=== PATIENT | female | born 1930 | race African-American/Black ===

== ENCOUNTER 2018-05-01 17:36 | Inpatient (IN) | payer OTHER, MEDICARE ==
[~2018-05-01] VITALS: Ht 167.6 cm; Wt 71.5 kg
[~2018-05-01 17:36] MED LIST: ASPIRIN325 M2 PO; ATORVASTATIN CA10 M1 PO; HEPARIN-1/25000 UNI1 IV; HEPARIN-D525000 UNIT IV; METOPROLOL TART25 M1 PO; NITROGLYCERIN1 EACH TOP; PLAVIX75 M1 PO; TYLENOL #31 TAB PO
--- NOTE | 2018-05-01 17:44 | ED GI/GU/ABDOMINAL COMPLAINT ---
History of Present Illness General Chief Complaint: Nausea, Vomiting, Diarrhea Stated Complaint: NAUSEA, BLACK STOOL Source: patient Exam Limitations: poor historian Allergies Coded Allergies: No Known Allergies (10/30/17) Reconcile Medications Aspirin (Aspirin*) 325 MG TABLET 1 TAB PO DAILY heart health Atorvastatin Calcium 10 MG TABLET 1 TAB PO DAILY hyperlipidemia Clopidogrel Bisulfate (Plavix) 75 MG TABLET 1 TAB PO DAILY blood thinner Heparin (Heparin-1/2NS 25,000 Units/500) 25,000 UNIT/500 ML (50 UNIT/ML) IV.SOLN 18.6 ML IV CONTINOUS INFUSION heart health Heparin Sodium,Porcine/D5w (Heparin-D5w 25,000 Unit/250 Ml) 25,000 UNIT/250 ML ( 100 UNIT/ML) IV.SOLN 500 ML IV Q24 heart health Metoprolol Tartrate 25 MG TABLET 1 TAB PO BID heart [facility] Nitroglycerin (Nitroglycerin Patch) 0.4 MG/HOUR PATCH.TD24 1 PAT TOP DAILY chest pain Triage Nurses Notes Reviewed? yes ? N Is pt currently ? No Onset: Gradual Duration: getting worse Quality/Severity: sharpness, severe Severity Numbers: 7 Radiation: no radiation HPI: Patient is an 88-year-old female who is a poor historian which history is limited however old records indicate that patient has a past medical history of an STEMI, heart failure, hyperlipidemia, hypertension, who is currently on anticoagulation who presents emergency room with bilateral upper leg pain generalized weakness and fatigue and noted 3 day history of black stools Denies any fever chills chest pain arm pain jaw pain cough dysuria hematuria states that on Tuesday the caregiver did note bright red blood from stool Patient's son does present to the emergency room and which he states that she also has been vomiting in the past 24 hours Unknown if there is Pepto-Bismol and iron supplementation however son does not think so Medical reconciliation shows the patient is on Plavix and ELIQUIS ([facility],Gary) Vital Signs & Intake/Output Vital Signs & Intake/Output Vital Signs Date Time Temp Pulse Resp B/P B/P Pulse O2 O2 Flow FiO2 Mean Ox Delivery Rate 05/01 2050 99.0 102 16 121/58 99 Room Air 05/01 1754 98.0 88 20 162/63 94 Room Air Room Air ([place] CERNA,Carlos A Pool) Past History Travel History Traveled to [place] past 21 day No Medical History Any Pertinent Medical History? see below for history Neurological: NONE EENT: NONE Cardiovascular: CHF, hypertension, myocardial infarction Respiratory: NONE Gastrointestinal: NONE Hepatic: NONE Renal: NONE Musculoskeletal: NONE Psychiatric: NONE Endocrine: NONE History of MRSA: No History of VRE: No History of CDIFF: No Surgical History Surgical History: Previous Abdominal Surgery, unsure which Psychosocial History Who do you live with Son Services at Home None What is your primary language Occitan Family History Hx Contributory? No (Gary Hernández) Review of Systems Review of Systems Constitutional: Reports: see HPI, malaise, weakness. EENTM: Reports: no symptoms. Respiratory: Reports: no symptoms. Cardiovascular: Reports: no symptoms. GI: Reports: see HPI, changes in stool. Genitourinary: Reports: no symptoms. Musculoskeletal: Reports: see HPI, muscle pain. Skin: Reports: no symptoms. Neurological/Psychological: Reports: no symptoms. Hematologic/Endocrine: Reports: no symptoms. Immunologic/Allergic: Reports: no symptoms. All Other Systems: Reviewed and Negative (Gary Hernández) Physical Exam Physical Exam General Appearance: no apparent distress, alert Head: atraumatic Eyes: Bilateral: normal appearance. Ears, Nose, Throat, Mouth: moist mucous membrane Neck: normal inspection Respiratory: normal breath sounds Cardiovascular: regular rate/rhythm Gastrointestinal: tenderness Rectal: heme positive stool, DARK BROWN STOOL NO BLOOD Neurologic/Psych: no motor/sensory deficits, awake Diagram Body Front & Back 1) Normal inspection generalized point tenderness noted 2) Normal inspection generalized point tenderness noted Core Measures ACS in differential dx? No Sepsis Present: No Sepsis Focused Exam Completed? No (Gary Hernández) Progress Differential Diagnosis: AAA, AMI, appendicitis, biliary colic, bowel obstruction , colon cancer, cholecystitis, diverticulitis, endometritis, esophageal varices, gastritis, hepatitis, hernia, hemorrhoids, ischemic bowel, inflamm bowel dis, kidney stone, Milena-Amirah tear, ovarian cyst, ovarian torsion, pancreatitis, PID/cervicitis, peptic ulcer, PUD/GERD, perforated viscous, SBO, UTI/pyelo Diagnostic Imaging: Viewed by Me: CT Scan. Radiology Impression: SEE COMMENTS Initial ED EK BPM,NSR Comments: PATIENT: SALONI ARDON PRESENT AGE: 88 PATIENT ACCOUNT NO: [id number] : [birth year] LOCATION: [facility] ORDERING PHYSICIAN: Gary [facility] SERVICE DATE: 05/01/18 EXAM TYPE: CAT - CT ABD & PELVIS W/O IV CONTRAS EXAMINATION: CT ABDOMEN AND PELVIS WITHOUT CONTRAST CLINICAL INFORMATION: Black stool. Pelvic pain. COMPARISON: None TECHNIQUE: Multidetector volumetric imaging was performed from the superior aspect of the liver through the pubic symphysis. Sagittal and coronal reformatted images were obtained on the technologist's workstation. DLP: 271 mGy-cm FINDINGS: LUNG BASES: The visualized lung bases are unremarkable. There is a peripherally calcified structure at the posterior inferior margin of the left ventricle and inferolateral margin of the left atrium measuring 4.9 x 3.7 x 4.4 cm, partially imaged on this study. This is of uncertain etiology, potentially a chronic partially calcified hematoma, a partially calcified aneurysm, or sequela of prior infection. LIVER, GALLBLADDER, AND BILIARY TREE: The liver is normal in size, shape, and attenuation. No focal hepatic lesion or biliary ductal dilatation is present. The gallbladder is filled with peripherally calcified gallstones which measure up to 2.4 cm in diameter. No gallbladder wall thickening or surrounding inflammatory changes are identified to indicate cholecystitis. PANCREAS: Unremarkable. SPLEEN: Unremarkable. ADRENAL GLANDS: Unremarkable. KIDNEYS AND URETERS: The kidneys are normal in size, shape, and attenuation. No hydronephrosis, hydroureter, or calculi seen. No perinephric stranding. BLADDER: Unremarkable. GASTROINTESTINAL TRACT: Stomach, small bowel, and colon are normal in caliber. No bowel wall thickening or surrounding inflammatory changes. Appendix is normal. There is mild to moderate colonic diverticulosis, most notably in the sigmoid and descending colon. A few diverticula are present in the ascending colon. No intraperitoneal free air or free fluid. ABDOMINAL WALL: No significant hernia is uterus and ovaries are unremarkable. Appreciated. LYMPH NODES: Normal. VASCULAR: Calcific atherosclerosis is present in the abdominal aorta and iliac arteries. No aneurysmal dilatation. 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 There is marked facet arthropathy. There is ankylosis of the SI joints. 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 IMPRESSION: 1. No acute intra-abdominal or intrapelvic abnormalities. There is mild to moderate colonic diverticulosis without evidence of acute diverticulitis. 2. Marked cholelithiasis without findings of acute cholecystitis. 3. A peripherally calcified 4.9 cm cardiac structure at the posterior/inferior margin of the left atrioventricular groove, possibly a chronic peripherally calcified collection/hematoma, a partially calcified aneurysm, or sequela of prior infection. Recommend correlation with the results of a prior echocardiogram from 10/31/2017. 4. 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 Diffuse ankylosis of the thoracal lumbar spine is either due to ankylosing spondylitis or diffuse idiopathic skeletal hyperostosis. DICTATED BY: Ever Koroma MD DATE/TIME DICTATED:05/01/181938 LEGAL COORDINATOR:ASTRID DATE/TIME TRANSCRIBED:05/01/181938 (Gary Hernández) Plan of Care: Orders Procedure Date/time Status Nothing by Mouth 05/02 B Active Misc Message 05/01 2105 Active ED Holding Orders 05/01 2105 Active Admit to inpatient 05/01 2105 Active Patient Data 05/01 2105 Active Vital Signs 05/01 2105 Active Code Status 05/01 2105 Active BLOOD PRODUCT PICKUP 05/01 2058 Active MISTAKE 05/01 2040 Active LEUKOCYTE POOR (PACKED CELLS) 05/01 2032 Active URINALYSIS 05/01 1839 Active TROPONIN LEVEL 05/01 1839 Complete PARTIAL THROMBOPLASTIN TIME 05/01 1839 Complete PROTHROMBIN TIME 05/01 1839 Complete COMPREHENSIVE METABOLIC PANEL 05/01 1839 Complete CBC WITHOUT DIFFERENTIAL 05/01 1839 Active EKG 05/01 1839 Active TYPE & SCREEN (NOT X-MATCH) 05/01 1839 Active Current Medications Sig/Alfredo Start time Last Medication Dose Stop Time Status Admin Sodium Chloride 1,000 ML BOLUS ONE 05/01 2000 CAN (Normal Saline 0.9%) 05/01 2059 Laboratory Tests 05/01/181952: Anion Gap 9, Estimated GFR 42 L, BUN/Creatinine Ratio 35.0 H, Glucose 111 H, Calcium 8.9, Total Bilirubin 0.2, AST 17, ALT 18, Alkaline Phosphatase 62, Troponin I 0.01, Total Protein 5.9 L, Albumin 3.3 L, Globulin 2.6, Albumin/ Globulin Ratio 1.3, PT 17.3 H, INR 1.58 H, APTT 28, CBC w Diff MAN DIFF ORDERED, RBC 1.80 L, MCV 89.3, MCH 30.4, MCHC 34.0, RDW 18.3 H, MPV 8.8, Gran % 82.0 H, Lymphocytes % 9.4 L, Monocytes % 8.4, Eosinophils % 0.2, Basophils % 0, Absolute Granulocytes 13.4 H, Segmented Neutrophils Pending, Absolute Lymphocytes 1.5, Absolute Monocytes 1.4 H, Absolute Eosinophils 0, Absolute Basophils 0 ([place] CERNA,Carlos A Pool) Departure Departure Disposition: STILL A PATIENT Condition: Stable Clinical Impression Primary Impression: GI bleed Secondary Impressions: Anemia, Diverticulosis Referrals: Harsh Branch MD (PCP/Family) Departure Forms: Customer Survey General Discharge Information Admission Note Spoke With: Beckie Castillo MD Documentation of Exam: Documentation of any treatments & extenuating circumstances including Concerns Regarding Discharge (functional status, medication knowledge or non-compliance, living conditions, etc.) that warrant an admission rather than observation: [ Patient requires IV blood transfusion possible endoscopy colonoscopy repeat labs gastroenterology consultation short-term rehabilitation physical therapy consultation and cardiology consultation] (Gary Hernández) PA/HOTEL ENGINEER Co-Sign Statement Statement: ED Attending supervision documentation- [X] I saw and evaluated the patient. I have also reviewed all the pertinent lab results and diagnostic results. I agree with the findings and the plan of care as documented in the PA's/HOTEL ENGINEER's documentation. Patient presents for evaluation of black bowel movements. Physical examination reveals an alert and conversant patient with good color and a nontender abdomen. [] I have reviewed the ED Record and agree with the PA's/HOTEL ENGINEER's documentation. [] Additions or exceptions (if any) to the PAs/HOTEL ENGINEER's note and plan are summarized below: [] ([place]ina CERNA,Carlos A Pool)
--- NOTE | 2018-05-01 19:55 | CT SCAN REPORT ---
EXAMINATION: CT ABDOMEN AND PELVIS WITHOUT CONTRAST CLINICAL INFORMATION: Black stool. Pelvic pain. COMPARISON: None TECHNIQUE: Multidetector volumetric imaging was performed from the superior aspect of the liver through the pubic symphysis. Sagittal and coronal reformatted images were obtained on the technologist's workstation. DLP: 271 mGy-cm FINDINGS: LUNG BASES: The visualized lung bases are unremarkable. There is a peripherally calcified structure at the posterior inferior margin of the left ventricle and inferolateral margin of the left atrium measuring 4.9 x 3.7 x 4.4 cm, partially imaged on this study. This is of uncertain etiology, potentially a chronic partially calcified hematoma, a partially calcified aneurysm, or sequela of prior infection. LIVER, GALLBLADDER, AND BILIARY TREE: The liver is normal in size, shape, and attenuation. No focal hepatic lesion or biliary ductal dilatation is present. The gallbladder is filled with peripherally calcified gallstones which measure up to 2.4 cm in diameter. No gallbladder wall thickening or surrounding inflammatory changes are identified to indicate cholecystitis. PANCREAS: Unremarkable. SPLEEN: Unremarkable. ADRENAL GLANDS: Unremarkable. KIDNEYS AND URETERS: The kidneys are normal in size, shape, and attenuation. No hydronephrosis, hydroureter, or calculi seen. No perinephric stranding. BLADDER: Unremarkable. GASTROINTESTINAL TRACT: Stomach, small bowel, and colon are normal in caliber. No bowel wall thickening or surrounding inflammatory changes. Appendix is normal. There is mild to moderate colonic diverticulosis, most notably in the sigmoid and descending colon. A few diverticula are present in the ascending colon. No intraperitoneal free air or free fluid. ABDOMINAL WALL: No significant hernia is uterus and ovaries are unremarkable. Appreciated. LYMPH NODES: Normal. VASCULAR: Calcific atherosclerosis is present in the abdominal aorta and iliac arteries. No aneurysmal dilatation. 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 There is marked facet arthropathy. There is ankylosis of the SI joints. 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 IMPRESSION: 1. No acute intra-abdominal or intrapelvic abnormalities. There is mild to moderate colonic diverticulosis without evidence of acute diverticulitis. 2. Marked cholelithiasis without findings of acute cholecystitis. 3. A peripherally calcified 4.9 cm cardiac structure at the posterior/inferior margin of the left atrioventricular groove, possibly a chronic peripherally calcified collection/hematoma, a partially calcified aneurysm, or sequela of prior infection. Recommend correlation with the results of a prior echocardiogram from 10/31/2017. 4. 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 Diffuse ankylosis of the thoracal lumbar spine is either due to ankylosing spondylitis or diffuse idiopathic skeletal hyperostosis.
[2018-05-01 20:11] LABS: ABSOLUTE BASOPHIL COUNT 0 /CUMM (0.0-0.2); ABSOLUTE EOSINOPHIL COUNT 0 /CUMM (0.0-0.7); ABSOLUTE GRANULOCYTE CT 13.4 /CUMM (1.4-6.5); ABSOLUTE LYMPH COUNT 1.5 /CUMM (1.2-3.4); ABSOLUTE MONOCYTE COUNT 1.4 /CUMM (0.10-0.60); BASOPHIL % 0 % (0.0-2.0); EOSINOPHIL % 0.2 % (0-5); MEAN CORPUSCULAR HGB 30.4 PG (27.0-31.0); MEAN CORPUSCULAR VOLUME 89.3 FL (81.0-99.0); MEAN PLATELET VOLUME 8.8 FL (7.4-10.4); PLATELET COUNT 288 /CUMM (130-400); RBC DISTRIBUTION WIDTH 18.3 % (11.5-14.5); WHITE BLOOD CELL COUNT 16.3 /CUMM (4.8-10.8)
[2018-05-01 20:12] LABS: PT 17.3 SEC (9.4-12.5); PTT 28 SEC (25-37)
[2018-05-01 20:17] LABS: HEMATOCRIT 16.1 % (37-47)
--- NOTE | 2018-05-01 22:08 | History & Physical ---
Craig Pennington MD 05/01/188: General Information and HPI History of Present Illness: 88-year-old woman with past medical history of CAD/and STEMI status post PCI with JOSE RAFAEL to LCx (10/2017) on aspirin/Plavix, atrial fibrillation on Eliquis/ sotalol, HFpEF (LVEF 60% with stage II diastolic dysfunction) C, hypertension, and hyperlipidemia seen for evaluation of leg pain and black stool. Patient is a poor historian, collateral information was obtained from ED staff and her son Frank over the phone. Patient reports over the past several weeks her right upper leg has been moderately painful without any trauma. Sometime after that her left leg became painful as well in the same character. They are described as cramping/throbbing and constant without radiation. She has been taking acetaminophen for pain relief without effect. Tuesday the patient ate a meal consisting canned soup causing her to vomit a short time later nonbloody bilious material. Tuesday she developed formed black tarry stool for which she and her son called her primary care provider whom referred her to the ED but the declined at that time. Patient continued to have black tarry stool for the next 2 days and developed generalized weakness with fatigue for which they then came to the [place] ED for evaluation. Review of systems She otherwise denies any headache, fever, chills, blurred/double vision, lightheadedness/dizziness, chest pain, palpitations, heartburn, shortness breath , cough, current nausea/vomiting, diarrhea, constipation, urinary symptoms. Social History Patient reports living at home with her son Frank and is otherwise apparently independent in all ADLs/IADLs including medication administration. Objective Vitals- Temp 98.0-99.0, HR 88-102, RR 16-20, SBP 121-162, O2 94-99% room air Physical Exam -General: Thin elderly woman appearing confused but in no acute distress -HEENT: NCAT, PERRL, EOMI, anicteric sclera, moist mucous membranes -Neck: Supple, no JVP, no bruits, trachea midline, no accessory respiratory muscle use -Cardio: 2/6 betancourt systolic tricuspid murmur; regular rate and rhythm -Pulmonary: Clear to auscultation bilaterally -Abdomen: Soft, non-tender, non-distended, bowel sounds intact -Neuro: Awake and alert, CN II-XII grossly intact, oriented to person/place/time -Extremities: Normal pulses, no edema Labs / Imaging / Studies -CBC: WBC 16.3, hemoglobin 5.5, hematocrit 16.1, platelet 288 -BMP: Sodium 138, potassium 4.1, chloride 102, CO2 28, BUN 42, creatinine 1.2, anion gap 9, glucose 111 -LFT: Within normal limit -Misc: Troponin I 0.01, INR 1.58 -EKG 11/02/17: Normal sinus rhythm with hyperacute T waves -EKG 05/01/18: No change from previous -Echocardiogram 10/2017: LVEF 60% with stage II diastolic dysfunction without any regional wall motion abnormalities and moderate/severe pulmonary hypertension -CT chest/abdomen/pelvis without IV contrast: 1. No acute intra-abdominal or intrapelvic abnormalities. There is mild to moderate colonic diverticulosis without evidence of acute diverticulitis. 2. Marked cholelithiasis without findings of acute cholecystitis. 3. A peripherally calcified 4.9 cm cardiac structure at the posterior/inferior margin of the left atrioventricular groove, possibly a chronic peripherally calcified collection/hematoma, a partially calcified aneurysm, or sequela of prior infection. Recommend correlation with the results of a prior echocardiogram from 10/31/2017. 4. 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 Diffuse ankylosis of the thoracal lumbar spine is either due to ankylosing spondylitis or diffuse idiopathic skeletal hyperostosis. Assessment 88-year-old woman with multiple medical problems significant for coronary artery disease/and STEMI with PCI and stent in October 2017 and atrial fibrillation on anticoagulation seen for evaluation of bilateral leg pain and black tarry stools. Presently patient is complaining of persistence of her leg pain and black tarry stools but otherwise denies any positive review of systems. Vital signs are within normal limits. Physical exam is significant only for moderate bilateral leg pain to flexion at the hip and a systolic murmur in the tricuspid area. Lab studies are significant for hemoglobin/hematocrit 5.5/16.1, WBC 16.3, BUN/ creatinine 42/1.2, and INR 1.58; troponin I is negative. CT scan was significant only for severe osteoarthritis of the bilateral hips. EKG is unchanged from previous. Patient was reportedly guaiac positive per nursing staff/AT provider. Patient was consented for blood transfusion and type and cross drawn and started on a transfusion of 3 units of packed red blood cells in the ED. She was also given intravenous Protonix and acetaminophen. Patient was orthostatic positive. Clinically patient appears to have a gastrointestinal bleed possibly secondary to dual antiplatelet therapy and anticoagulation for her multiple cardiovascular disease processes. Patient recently had a drug-eluting stent placed in October 2017 to the left circumflex artery. Patient's hemoglobin at time of discharge was 13.9 and is now 5.5. Patient received 6 months of dual antiplatelet therapy for her drug-eluting stent but now has significant bleeding for which aspirin and Eliquis are being held; Plavix is being continued and will be reassessed by cardiology. Patient is being admitted to the intensive care unit as a telemetry hold for blood transfusion, serial CBC, gastroenterology/cardiology evaluation, intravenous Protonix, and possible endoscopy. Problem List -Acute blood loss anemia likely secondary to GI bleed -Leukocytosis, likely reactive -History of coronary artery disease/STEMI status post PCI with JOSE RAFAEL to LCx, on aspirin/Plavix -Atrial fibrillation on Eliquis/sotalol, now in normal sinus rhythm -HFpEF, LVEF 60% with stage II diastolic dysfunction -Moderate/severe pulmonary hypertension -Hyperlipidemia -Hypertension Plan -Admit to intensive care unit as a telemetry hold -Guaiac all stools -Avoid aggressive hydration due to diastolic dysfunction and pulmonary hypertension -give Lasix as needed if patient develops shortness of breath -Protonix 40 mg IV twice daily -Continue home meds: Atorvastatin, Plavix, metoprolol, Lasix, sotalol -Hold aspirin and Eliquis for GI bleed -Consult with GI for gastrointestinal bleed -Consult with cardiology for medication assessment -Type and screen -Transfuse PRBC to hemoglobin >8 -Status post 3 PRBC -CBC every 6 hours -Obtain iron panel -Trend troponin/EKG until peak or 3 negative sets -Pain control with acetaminophen -N.p.o. overnight for possible endoscopy in morning -DVT prophylaxis with Alps only, avoid pharmacological prophylaxis due to acute bleed -Full code Allergies/Medications Allergies: Coded Allergies: No Known Allergies (10/30/17) Home Med list Apixaban (Eliquis) 2.5 MG TABLET 1 TAB PO BID AFIB (Reported) Aspirin (Aspirin*) 81 MG TAB.CHEW 1 TAB PO DAILY CAD (Reported) Atorvastatin Calcium 10 MG TABLET 1 TAB PO DAILY hyperlipidemia Clopidogrel Bisulfate (Plavix) 75 MG TABLET 1 TAB PO DAILY blood thinner Furosemide (Lasix) 20 MG TABLET 1 TAB PO BID SWELLING (Reported) Sotalol (Betapace) 80 MG TABLET 1 TAB PO DAILY AFIB (Reported) Past History Travel History Traveled to [place] past 21 day No Medical History Neurological: NONE EENT: NONE Cardiovascular: AFIB, CHF, hypertension, myocardial infarction Respiratory: NONE Gastrointestinal: NONE Hepatic: NONE Renal: NONE Musculoskeletal: NONE Psychiatric: NONE Endocrine: NONE History of MRSA: No History of VRE: No History of CDIFF: No Surgical History Surgical History: Previous Abdominal Surgery, unsure which Past Family/Social History Psychosocial History Where do you live? Home Who Do You Live With? child (Son Frank) Services at Home: None Primary Language: Singaporean Functional Ability ADLs Independent: dressing, eating, toileting, bathing. Ambulation: independent IADLs Independent: shopping, housework, finances, food prep, telephone, transportation , medication admin. Review of Systems Review of Systems Constitutional: Reports: see HPI. Exam & Diagnostic Data Last 24 Hrs of Vital Signs/I&O Vital Signs Date Time Temp Pulse Resp B/P B/P Pulse O2 O2 Flow FiO2 Mean Ox Delivery Rate 05/01 2243 98.7 97 16 114/56 100 Room Air 05/01 2123 99.0 05/01 2050 99.0 102 16 121/58 99 Room Air 05/01 1754 98.0 88 20 162/63 94 Room Air Room Air Assessment/Plan As Ranked By This Provider Problem List: 1. GI bleed 2. Leukocytosis Core Measures/Misc (07/24) Acute Coronary Syndrome ACS Diagnosis: No Congestive Heart Failure Congestive Heart Failure Diagnosis No Cerebrovascular Accident CVA/TIA Diagnosis: No VTE (View Protocol) VTE Risk Factors Age>40 No Mechanical VTE Prophylaxis d/t N/A MechProphylax Ordered No VTE Pharm Prophylaxis d/t Bleeding (Active) Sepsis (View protocol) Sepsis Present: No If YES complete Sepsis Event Note If YES complete Sepsis Event Note Beckie Castillo 05/02/18 0358: Core Measures/Misc (07/24) Sepsis (View protocol) If YES complete Sepsis Event Note If YES complete Sepsis Event Note Attending MD Review Statement Attending Statement Attending MD Statement: examined this patient, discuss w/resident/PA/PODIATRIST, agreed w/resident/PA/PODIATRIST, reviewed EMR data (avail), reviewed images, amended to note Attending Assessment/Plan: CC: Black colored stool PMH: CAD, S/P NSTEMI S/P JOSE RAFAEL, HFpEF, HLD, PAF Patient is a reliable historian. She states that since Tuesday she has not been feeling "right". "I felt like I was having another heart attack". Patient was not specific and could not provide details but stated that she felt funny in her chest and upper abdomen. She was feeling very weak and lethargic, lightheaded even after walking a few steps. She noticed black colored stools since Tuesday, progressively worsening but denies any diarrhea. On Tuesday she also noticed nausea and several episodes of vomiting which were black in color but it eventually improved. Her son insisted on going to hospital but patient refused. She was sick even on Tuesday and today her son went to talk to primary care physician. Her lightheadedness and weakness worsened today so she finally decided to come to hospital. She never had similar symptoms in the past. She also complains of bilateral thigh pain, more so in inguinal region. Currently she denies any chest pain, chest tightness, palpitations. She does not recall her easy sent endoscopy or colonoscopy. She states that she might be taking something for pain but is unclear about it. When I mentioned about ibuprofen she stated that "it sounds familiar". Vitals: Temperature 98.0, pulse 88, RR 20, blood pressure 162/63, saturating 94% on room air Orthostatic vitals positive On exam: A O 3, cooperative, no acute distress, neck supple, JVD normal, no lymphadenopathy, mucosa moist, no focal neurological deficit, no dependent edema , no obvious skin rashes or inflammation CVS: S1-S2, RRR. RS: Clear to auscultate bilaterally. Abdomen: Soft, NT, ND, bowel sounds present. CT abdomen pelvis without IV contrast: 1. No acute intra-abdominal or intrapelvic abnormalities. There is mild to moderate colonic diverticulosis without evidence of acute diverticulitis. 2. Marked cholelithiasis without findings of acute cholecystitis. 3. A peripherally calcified 4.9 cm cardiac structure at the posterior/inferior margin of the left atrioventricular groove, possibly a chronic peripherally calcified collection/hematoma, a partially calcified aneurysm, or sequela of prior infection. Recommend correlation with the results of a prior echocardiogram from 10/31/2017. 4. 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 Diffuse ankylosis of the thoracal lumbar spine is either due to ankylosing spondylitis or diffuse idiopathic skeletal hyperostosis. Assessment and plan 88-year-old female with past medical history significant for CAD, S/P NSTEMI S/P JOSE RAFAEL, HFpEF, HLD, PAF, currently on aspirin, Plavix, Eliquis presented in ER for positional lightheadedness, lethargy, weakness, black colored stool since last 3 days, progressively worsening and funny feeling in her chest. The examination was unremarkable except orthostatic hypotension from sitting to standing position. Rectal examination done by ER provided showed heme-positive stool dark brown but no nathaniel blood. Her hemoglobin was 5.5 which is decreased from 13.9 on April 14. This is significant drop in H&H and her MCV is 89.3 indicating that this is acute blood loss. Patient may be taking NSAIDs but unclear history. Gastroenterology has been informed from ER who suggested a blood transfusion. We will hold off aspirin for now, continue Plavix, hold Eliquis. Repeat H&H. Given her recent PCI, ACS should be ruled out especially in setting of anemia and "funny sensation in her chest". Appears more upper GI bleed, will continue PPI. + acute blood loss anemia + melena + r/o demand ischemia + Leukocytosis : reactive + Hx of CAD, S/P NSTEMI S/P JOSE RAFAEL, HFpEF, HLD, PAF - Admit to telemetry - Continuous telemetry monitoring - Continue 3 units PRBC transfusion - Repeat H&H in 6 hours - Obtain iron studies, ferritin, TIBC - GI consult - Serial troponins and ECG - Protonix 40 mg IV twice a day - Hold aspirin and Eliquis continue Plavix - Hold antihypertensives and diuretic: IV Lasix only if patient shows signs of any volume overload or hypoxia - Cardiology consult - DVT prophylaxis with Alps only
[2018-05-01] MEDS ORDERED: LASIX20 M1 PO (22:45)
[2018-05-01] MEDS ORDERED: ASPIRIN81 M4 PO (22:45)
[2018-05-01] MEDS ORDERED: BETAPACE80 MG PO (22:46)
[2018-05-01] MEDS ORDERED: ELIQUIS2.5 M1 PO (22:49)
[2018-05-02 03:05] VITALS: BP 122/74
--- NOTE | 2018-05-02 03:59 | Admission Certification ---
Admission Certification Certification Statement - As attending physician, I certify that at the time of - admission, based on clinical presentation, severity of - symptoms, need for further diagnostic testing and - therapeutic interventions, and risk of adverse outcomes - without in-hospital treatment, in my clinical assessment, - this patient requires an acute hospital stay for a minimum - of two nights or longer. I have also considered psychsocial - factors such as support system, advanced age, financial - issues, cognitive issues, and failed out-patient treatments, - past re-admission history, safety of patient, and lack of - compliance as applicable. Specific rationale supporting this admission is: Acute blood loss anemia secondary to GI bleed
[2018-05-02 04:44] LABS: ABSOLUTE BASOPHIL COUNT 0.1 /CUMM (0.0-0.2); ABSOLUTE EOSINOPHIL COUNT 0.1 /CUMM (0.0-0.7); ABSOLUTE GRANULOCYTE CT 9.4 /CUMM (1.4-6.5); ABSOLUTE LYMPH COUNT 1.6 /CUMM (1.2-3.4); ABSOLUTE MONOCYTE COUNT 1.1 /CUMM (0.10-0.60); BASOPHIL % 0.6 % (0.0-2.0); EOSINOPHIL % 0.6 % (0-5); GRANULOCYTE % 76.6 % (42.2-75.2); MEAN CORPUSCULAR HGB 30.9 PG (27.0-31.0); MEAN CORPUSCULAR HGB CONC 33.9 G/DL (33.0-37.0); MEAN CORPUSCULAR VOLUME 91.2 FL (81.0-99.0); MEAN PLATELET VOLUME 8.1 FL (7.4-10.4); PLATELET COUNT 226 /CUMM (130-400); RBC DISTRIBUTION WIDTH 17.1 % (11.5-14.5); WHITE BLOOD CELL COUNT 12.2 /CUMM (4.8-10.8)
[2018-05-02 04:48] LABS: HEMATOCRIT 22.4 % (37-47); RED BLOOD CELL CT 2.46 /CUMM (4.20-5.40)
--- NOTE | 2018-05-02 07:24 | Cons- CRCU ---
Maggie Raman 05/02/18 0723: General Information and HPI Consulting Request Date of Consult: 05/02/18 Requested By: Dr. Jewell Reason for Consult: GI Bleed Source of Information: patient, family, old records Exam Limitations: poor historian History of Present Illness: Ms. Sanon is a 88 yo F w/ PMh of CAD, S/P NSTEMI S/P JOSE RAFAEL, HFpEF (last echo by Dr. Calvert), HLD, PAF, ascended to the ER with chief complaint of black stool starting Tuesday after she consumed some canned soup was causing her to vomit nonbloody ileus material, and subsequently on Tuesday patient's had several episodes of black stool. The son contacted the PCP at first however did not go to the hospital due to patient refusal, however patient continued to be sick on Tuesday and Tuesday that her son eventually brought her to the ER. Per son, patient's lightheadedness and weakness worsened, without any similar symptoms in the past. Patient also, complaining of bilateral thigh pain, more so in the inguinal region, however denied chest pain despite endorsing some "funny feelings or chest" on presentation to ER, along with dizziness which was found to be orthostatic positive in the ER, but denied palpitation/sick contacts /abdominal pain/urinary complaints/bilateral lower extremity edema. Patient was unclear whether she took any NSAIDs for pain however ibuprofen sounded familiar to her. During our clinical interaction, patient appeared to be more oriented and conversational, and awared of what was going on before being brought to the ER. Allergies/Medications Allergies: Coded Allergies: No Known Allergies (10/30/17) Home Med List: Apixaban (Eliquis) 2.5 MG TABLET 1 TAB PO BID AFIB (Reported) Aspirin (Aspirin*) 81 MG TAB.CHEW 1 TAB PO DAILY CAD (Reported) Atorvastatin Calcium 10 MG TABLET 1 TAB PO DAILY hyperlipidemia Clopidogrel Bisulfate (Plavix) 75 MG TABLET 1 TAB PO DAILY blood thinner Furosemide (Lasix) 20 MG TABLET 1 TAB PO BID SWELLING (Reported) Sotalol (Betapace) 80 MG TABLET 1 TAB PO DAILY AFIB (Reported) Review of Systems Review of Systems Constitutional: Reports: see HPI. 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 Home Who Do You Live With? child (Son Frank) Services at Home: None Primary Language: Honduran Smoking Status: Never Smoked Functional Ability ADLs Independent: dressing, eating, toileting, bathing. Ambulation: independent IADLs Independent: shopping, housework, finances, food prep, telephone, transportation , medication admin. Exam & Diagnostic Data Last 24 Hrs of Vital Signs/I&O Vital Signs Date Time Temp Pulse Resp B/P B/P Pulse O2 O2 Flow FiO2 Mean Ox Delivery Rate 05/02 0305 98.0 90 16 122/74 99 Room Air 05/02 0139 98.4 92 18 113/53 100 Room Air 05/02 0137 100 Room Air 05/02 0124 98.4 61 18 107/55 99 Room Air 05/02 0008 98.7 88 18 119/58 99 Room Air 05/01 2243 98.7 97 16 114/56 100 Room Air 05/01 2123 99.0 05/01 2050 99.0 102 16 121/58 99 Room Air 05/01 1754 98.0 88 20 162/63 94 Room Air Room Air Intake & Output 05/02 1600 05/02 0800 05/02 0000 Intake Total 700 300 Output Total Balance 700 300 Intake, Blood 700 300 Product Patient 72.745 kg 58.967 kg Weight Weight Bed scale Measurement Method Physical Exam General Appearance: alert, awake, comfortable Head: atraumatic, normal appearance Respiratory: normal breath sounds, chest non-tender, no respiratory distress Cardiovascular: regular rate/rhythm, systolic murmur Gastrointestinal: normal bowel sounds, soft, non-tender Rectal: heme positive stool Extremities: normal inspection, normal capillary refill, no edema, bilateral inner thigh pain, chronic, on heat pad, more tenderness on palpation, however no redness/elevated skin temp/skin breakdown/swelling. Last 48 Hrs of Labs/Thai: Laboratory Tests 05/02/18 0750: Urine Color Pending, Urine Clarity Pending, Urine pH Pending, Ur Specific Balfour Pending, Urine Protein Pending, Urine Ketones Pending, Urine Nitrite Pending, Urine Bilirubin Pending, Urine Urobilinogen Pending, Ur Leukocyte Esterase Pending, Ur Microscopic Pending, Urine Hemoglobin Pending, Urine Glucose Pending 05/02/18 0430: Anion Gap 8, Estimated GFR 47 L, BUN/Creatinine Ratio 34.5 H, TIBC 287, Ferritin 31.7, Troponin I 0.02, CBC w Diff NO MAN DIFF REQ, RBC 2.46 L, MCV 91.2, MCH 30.9, MCHC 33.9, RDW 17.1 H, MPV 8.1, Gran % 76.6 H, Lymphocytes % 13.4 L, Monocytes % 8.8, Eosinophils % 0.6, Basophils % 0.6, Absolute Granulocytes 9.4 H, Absolute Lymphocytes 1.6, Absolute Monocytes 1.1 H, Absolute Eosinophils 0.1, Absolute Basophils 0.1 05/01/18 1953: Anion Gap 9, Estimated GFR 42 L, BUN/Creatinine Ratio 35.0 H, Glucose 111 H, Calcium 8.9, Iron 59, TIBC 315, Ferritin 36.1, Total Bilirubin 0.2, AST 17, ALT 18, Alkaline Phosphatase 62, Troponin I 0.01, Total Protein 5.9 L, Albumin 3.3 L, Globulin 2.6, Albumin/Globulin Ratio 1.3, PT 17.3 H, INR 1.58 H, APTT 28, CBC w Diff MAN DIFF ORDERED, RBC 1.80 L, MCV 89.3, MCH 30.4, MCHC 34.0, RDW 18.3 H, MPV 8.8, Gran % 82.0 H, Lymphocytes % 9.4 L, Monocytes % 8.4, Eosinophils % 0.2, Basophils % 0, Absolute Granulocytes 13.4 H, Segmented Neutrophils 84 H, Band Neutrophils 4, Absolute Lymphocytes 1.5, Lymphocytes 9 L, Monocytes 3, Absolute Monocytes 1.4 H, Absolute Eosinophils 0, Absolute Basophils 0, Nucleated RBCs 1 H, Platelet Estimate VERIFIED BY SMEAR, Polychromasia 1+, Anisocytosis 1+, Fld Total RBCs Counted 100 Assessment/Plan CRCU Impression/Plan: VS: In/Out/24hrs: Sedation: None Vent Setting: None [id number]: NGTD #acute blood loss anemia #melena #ZAIDA 2/2 dehydration #r/o demand ischemia/type II [place] #Metabolic encephalopathy 2/2 GI bleed/Dehydration?, improving #Leukocytosis : reactive #PMHx of CAD, S/P NSTEMI S/P JOSE RAFAEL, HFpEF, HLD, PAF Respiratory: -No issues at this point, will continue monitor, patient currently breathing comfortably on room air. -Will obtain baseline CXR Infection: -Patient's leukocytosis was likely reactive, without any fever on presentation. There is no active signs of infection based on imaging/other labs/history. We will continue to monitor for signs of infection. Cardio: -Due to the risk of active bleeding, patient was now on hold off aspirin, Eliquis, Plavix, pending further cardiology evaluation. Hem: - hgb 5.5 -> 7.6 s/p 2U PRBC, pending 3rd unit. Recheck CBC at 10AM or s/p the 3rd unit. - No signs of active bleeding ever since admission. Patient's last bout of diarrhea was Tuesday, and no diarrhea before Tuesday. - Guaiac all stools. - PT/INR WNL. Holding blood thinners as above. Metabolism: - Cr 1.2 -> 1.1, likely ZAIDA 2/2 dehydration. She had not receive any fluid since admission due to the concern of one overload based on past medical history of CHF. Will continue monitor renal function. - Will hold off Lasix for now. Alimentary: - NPO pending endoscopy. - Patient felt thirsty however did not appeared to be volum overloaded. Will monitor off Lasix/Fluid for now, and accuchek at noon, and if needed, D5w 1/2 NS x 1L at 50cc/hr. - At baseline, patient was eating a regular diet without complaint. Neuro: -Patient was being a poor historian on presentation, however improved on giving history to physician this AM. Son at bedside endorsed the improvement - Patient's mental status improved overnight, thus more leaning toward metabolic encephalopathy. - Strength 5/5 in all extremities, with grossly intact sensation. Cont monitor DVT prophylaxis: ALPS NPO IV Access: Peripheral IV Full Code Consult Acknowledgment - Thank you for your consult request. Niko Jewell MD 05/02/18 0858: Assessment/Plan CRCU Other Findings/Comments: I, Niko Fanta, M.D. have examined this patient, reviewed available EMR data, personally reviewed images, discussed with resident/PA/AUTOMATION ARCHITECT, discussed management plan with housestaff and nursing staff, discussed managment plan all of healthcare providers, discussed management plan with patient and/or family, agreed with resident/PA/AUTOMATION ARCHITECT. The past history and parts of the chart have been autopopulated. Impression 88-year-old woman * Acute blood loss anemia secondary to GI bleed * Recent PCI Plan -NPO -GI evaluation -Cardiology evaluation -s/p prbcs, monitor cbcs -a/c held DVT prophylaxis at all times TTS 40 min Consult Acknowledgment - Thank you for your consult request.
[2018-05-02 08:00] VITALS: BP 108/68
--- NOTE | 2018-05-02 11:40 | Cons- Gastroenterology ---
General Information and HPI Consulting Request Date of Consult: 05/02/18 Requested By: Niko Jewell MD Reason for Consult: 1. Melena 2. Acute GI blood loss 3. Chronic use of any thrombotic agents Source of Information: patient, electronic medical record Exam Limitations: poor historian History of Present Illness: Patient is an 88-year-old female who was brought to the [facility] ED with a three day history of melenic stools. Ms. Sanon is an 88-year-old woman with a past medical history significant for CAD who is status post PCI with JOSE RAFAEL to LCx (10/2017) on aspirin and Plavix as well as atrial fibrillation for which she takes Eliquis and sotalol. She also has HFpEF (LVEF 60% with stage II diastolic dysfunction), hypertension, and hyperlipidemia.. Patient is a poor historian, and history ws obtained from the electronic medical record and from her son. Over the past several weeks patient had developed bilateral leg pain for which she ws taking acetominophen. On Tuesday the patient had postprandial vomiting of nonbloody bilious material. Tuesday she developed formed black tarry stool. Her son called her primary care provider whom referred her to the ED but they declined at that time. Patient continued to have black tarry stool over the next 2 days and developed generalized weakness with fatigue which then prompted them to come to the [place] ED for evaluation. Allergies/Medications Allergies: Coded Allergies: No Known Allergies (10/30/17) Home Med List: Apixaban (Eliquis) 2.5 MG TABLET 1 TAB PO BID AFIB (Reported) Aspirin (Aspirin*) 81 MG TAB.CHEW 1 TAB PO DAILY CAD (Reported) Atorvastatin Calcium 10 MG TABLET 1 TAB PO DAILY hyperlipidemia Clopidogrel Bisulfate (Plavix) 75 MG TABLET 1 TAB PO DAILY blood thinner Furosemide (Lasix) 20 MG TABLET 1 TAB PO BID SWELLING (Reported) Sotalol (Betapace) 80 MG TABLET 1 TAB PO DAILY AFIB (Reported) Current Medications: Current Medications Sig/Alfredo Start time Last Medication Dose Route Stop Time Status Admin Acetaminophen 650 MG Q6P PRN 05/01 2230 AC 05/02 PO 1028 Acetaminophen 1,000 MG Q6P PRN 05/01 2230 AC IV Acetaminophen 0 .STK-MED ONE 05/01 2101 DC IV Acetaminophen 1,000 MG ONCE ONE 05/01 2045 DC 05/01 N/A 1 UNIT IV 05/01 Atorvastatin Calcium 10 MG 1700 05/02 1700 AC PO Clopidogrel Bisulfate 75 MG DAILY 05/02 900 DC PO Furosemide 20 MG BID 05/02 900 DC PO Pantoprazole Sodium 40 MG BID 05/02 900 AC 05/02 IV 1028 Pantoprazole Sodium 0 .STK-MED ONE 05/01 2101 DC IV Pantoprazole Sodium 40 MG ONE ONE 05/01 2045 DC 05/01 IV 05/01 Sodium Chloride 1,000 ML BOLUS ONE 05/01 2000 CAN IV 05/01 2059 Sotalol HCl 40 MG BID 05/02 900 AC PO Past History Travel History Traveled to [place] past 21 day No Medical History Blood Transfusion Hx: Yes Neurological: NONE EENT: NONE Cardiovascular: AFIB, CHF, hypertension, myocardial infarction Respiratory: NONE Gastrointestinal: NONE Hepatic: NONE Renal: NONE Musculoskeletal: NONE Psychiatric: NONE Endocrine: NONE Blood Disorders: NONE Cancer(s): NONE 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 Home Who Do You Live With? child (Son Frank) Services at Home: None Primary Language: Persian Smoking Status: Never Smoked Functional Ability ADLs Independent: dressing, eating, toileting, bathing. Ambulation: independent IADLs Independent: shopping, housework, finances, food prep, telephone, transportation , medication admin. Review of Systems Review of Systems Constitutional: Reports: see HPI. EENTM: Reports: no symptoms. Cardiovascular: Reports: see HPI. Respiratory: Reports: no symptoms. GI: Reports: see HPI. Genitourinary: Reports: no symptoms. Musculoskeletal: Reports: see HPI. Skin: Reports: no symptoms. Neurological/Psychological: Reports: no symptoms. Exam & Diagnostic Data Vital Signs and I&O Vital Signs Date Time Temp Pulse Resp B/P B/P Pulse O2 O2 Flow FiO2 Mean Ox Delivery Rate 05/02 0800 98 Room Air 05/02 0800 98.0 88 20 108/68 98 Room Air 05/02 0305 98.0 90 16 122/74 99 Room Air 05/02 0139 98.4 92 18 113/53 100 Room Air 05/02 0137 100 Room Air 05/02 0124 98.4 61 18 107/55 99 Room Air 05/02 0008 98.7 88 18 119/58 99 Room Air 05/01 2243 98.7 97 16 114/56 100 Room Air 05/01 2123 99.0 05/01 2050 99.0 102 16 121/58 99 Room Air 05/01 1754 98.0 88 20 162/63 94 Room Air Room Air Intake & Output 05/02 1600 05/02 0400 05/01 1600 05/01 0400 04/30 0400 Intake Total 700 300 Output Total Balance 700 300 Intake, Blood 700 300 Product Patient 160 lb Weight Weight Bed scale Measurement Method Physical Exam General Appearance: well developed/nourished, no apparent distress, alert Head: atraumatic, normal appearance Eyes: Bilateral: normal appearance. Ears, Nose, Throat: hearing grossly normal Neck: normal inspection, supple Respiratory: normal breath sounds, no respiratory distress Cardiovascular: irregularly irregular, II/ systolic murmur, LLSB Gastrointestinal: normal bowel sounds, soft, non-tender, no organomegaly Extremities: no edema Neurologic/Psych: awake, alert, oriented x 3 Cranial Nerves: cranial nerves II-XII intact Skin: intact, normal color, warm/dry Results Pertinent Lab Results: Laboratory Tests 05/02 05/02 1005 0750 Chemistry Troponin I Pending Urines Urine Color (YEL,AMB,STR) YEL Urine Clarity (CLEAR) CLEAR Urine pH (5.0 - 8.0) 6.0 Ur Specific [place]ber[place] (1.001 - 1.035) 1.015 Urine Protein (NEG,<30 MG/DL) NEG Urine Ketones (NEG) NEG Urine Nitrite (NEG) NEG Urine Bilirubin (NEG) NEG Urine Urobilinogen (0.1 - 1.0 EU/dl) 0.2 Ur Leukocyte Esterase (NEG) NEG Ur Microscopic EXAM NOT REQUIRED Urine Hemoglobin (NEG) NEG Urine Glucose (N MG/DL) NEG 05/020 195 Chemistry Sodium (137 - 145 mmol/L) 139 138 Potassium (3.5 - 5.1 mmol/L) 3.9 4.1 Chloride (98 - 107 mmol/L) 105 101 Carbon Dioxide (22 - 30 mmol/L) 26 28 Anion Gap (5 - 16) 8 9 BUN (7 - 17 mg/dL) 38 H 42 H Creatinine (0.5 - 1.0 mg/dL) 1.1 H 1.2 H Estimated GFR (>60 ml/min) 47 L 42 L BUN/Creatinine Ratio (7 - 25 %) 34.5 H 35.0 H Glucose (65 - 99 mg/dL) 111 H Calcium (8.4 - 10.2 mg/dL) 8.9 Iron (37 - 170 ug/dL) 59 TIBC (265 - 497 ug/dL) 287 315 Ferritin (11.1 - 264 ng/mL) 31.7 36.1 Total Bilirubin (0.2 - 1.3 mg/dL) 0.2 AST (14 - 36 U/L) 17 ALT (9 - 52 U/L) 18 Alkaline Phosphatase (<127 U/L) 62 Troponin I (< 0.11 ng/ml) 0.02 0.01 Total Protein (6.3 - 8.2 g/dL) 5.9 L Albumin (3.5 - 5.0 g/dL) 3.3 L Globulin (1.9 - 4.2 gm/dL) 2.6 Albumin/Globulin Ratio (1.1 - 2.2 %) 1.3 Coagulation PT (9.4 - 12.5 SEC) 17.3 H INR (0.90 - 1.19) 1.58 H APTT (25 - 37 SEC) 28 Hematology CBC w Diff NO MAN DIFF REQ MAN DIFF ORDERED WBC (4.8 - 10.8 /CUMM) 12.2 H 16.3 H RBC (4.20 - 5.40 /CUMM) 2.46 L 1.80 L Hgb (12.0 - 16.0 G/DL) 7.6 L 5.5 *L Hct (37 - 47 %) 22.4 L 16.1 *L MCV (81.0 - 99.0 FL) 91.2 89.3 MCH (27.0 - 31.0 PG) 30.9 30.4 MCHC (33.0 - 37.0 G/DL) 33.9 34.0 RDW (11.5 - 14.5 %) 17.1 H 18.3 H Plt Count (130 - 400 /CUMM) 226 288 MPV (7.4 - 10.4 FL) 8.1 8.8 Gran % (42.2 - 75.2 %) 76.6 H 82.0 H Lymphocytes % (20.5 - 51.1 %) 13.4 L 9.4 L Monocytes % (1.7 - 9.3 %) 8.8 8.4 Eosinophils % (0 - 5 %) 0.6 0.2 Basophils % (0.0 - 2.0 %) 0.6 0 Absolute Granulocytes (1.4 - 6.5 /CUMM) 9.4 H 13.4 H Segmented Neutrophils (42.2 - 75.2 %) 84 H Band Neutrophils (0.0 - 5.0 %) 4 Absolute Lymphocytes (1.2 - 3.4 /CUMM) 1.6 1.5 Lymphocytes (20.5 - 51.1 %) 9 L Monocytes (1.7 - 9.3 %) 3 Absolute Monocytes (0.10 - 0.60 /CUMM) 1.1 H 1.4 H Absolute Eosinophils (0.0 - 0.7 /CUMM) 0.1 0 Absolute Basophils (0.0 - 0.2 /CUMM) 0.1 0 Nucleated RBCs (0.0 - 0.0 /100WBC) 1 H Platelet Estimate (ADEQUATE) VERIFIED BY SMEAR Polychromasia 1+ Anisocytosis 1+ Other Body Source Fld Total RBCs Counted (%) 100 Imaging/Other Studies: CT ABDOMEN and PELVIS IMPRESSION: 1. No acute intra-abdominal or intrapelvic abnormalities. There is mild to moderate colonic diverticulosis without evidence of acute diverticulitis. 2. Marked cholelithiasis without findings of acute cholecystitis. 3. A peripherally calcified 4.9 cm cardiac structure at the posterior/inferior margin of the left atrioventricular groove, possibly a chronic peripherally calcified collection/hematoma, a partially calcified aneurysm, or sequela of prior infection. Recommend correlation with the results of a prior echocardiogram from 10/31/2017. 4. 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 Diffuse ankylosis of the thoracal lumbar spine is either due to ankylosing spondylitis or diffuse idiopathic skeletal hyperostosis. Assessment/Plan Assessment/Recommendations: ASSESSMENT: 1. Melena 2. Nausea and Vomiting -- ? Milena Marinelli Tear versus Peptic Ulcer Disease, Vs. Esophagitis 3. Atrial Fibrillation 4. Chronic Use of Antithrombotic Agents 5. Coronary Artery Disease RECOMMENDATIONS: 1. NPO 2. EGD today 3. Hold Eliquis and Plavix if o.k. with cardiology 4. Protonix 40 mg IV BID 5. Serial H/H, transfuse to Hgb of between 7 and 8. 6. Two large bore IVs 7. Risks and benefits d/w patient who agrees to procedure. Consult Acknowledgment - Thank you for your consult request.
[2018-05-02 12:38] LABS: ABSOLUTE BASOPHIL COUNT 0 /CUMM (0.0-0.2); ABSOLUTE EOSINOPHIL COUNT 0.2 /CUMM (0.0-0.7); ABSOLUTE GRANULOCYTE CT 8.2 /CUMM (1.4-6.5); ABSOLUTE LYMPH COUNT 1.4 /CUMM (1.2-3.4); ABSOLUTE MONOCYTE COUNT 0.8 /CUMM (0.10-0.60); BASOPHIL % 0.2 % (0.0-2.0); EOSINOPHIL % 1.5 % (0-5); GRANULOCYTE % 77.3 % (42.2-75.2); MEAN CORPUSCULAR HGB 29.8 PG (27.0-31.0); MEAN CORPUSCULAR HGB CONC 33.4 G/DL (33.0-37.0); MEAN CORPUSCULAR VOLUME 89.1 FL (81.0-99.0); MEAN PLATELET VOLUME 8.1 FL (7.4-10.4); PLATELET COUNT 214 /CUMM (130-400); RBC DISTRIBUTION WIDTH 16.6 % (11.5-14.5); WHITE BLOOD CELL COUNT 10.7 /CUMM (4.8-10.8)
[2018-05-02 12:47] LABS: HEMATOCRIT 27.5 % (37-47); RED BLOOD CELL CT 3.08 /CUMM (4.20-5.40)
--- NOTE | 2018-05-02 12:51 | RADIOLOGY REPORT ---
EXAMINATION: XR PORTABLE CHEST CLINICAL INFORMATION: History of CAD with JOSE RAFAEL PCI. COMPARISON: 11/01/2017 TECHNIQUE: Portable frontal view of the chest was obtained. FINDINGS: The cardiomediastinal silhouette is stable. The lungs are clear without dense consolidation. No pneumothorax. Mild blunting of the costophrenic sulci may reflect atelectasis although trace effusions cannot be excluded. Osteopenia. IMPRESSION: No acute cardiopulmonary process.
--- NOTE | 2018-05-02 13:28 | Proc Note Endoscopy ---
Endoscopy Procedure Medical History: unchanged Mental Status: alert/oriented Heart/Lung Eval Prior to Sedation: within normal limits Candidate for Sedation? Yes Procedure Date: 05/02/18 Procedure Type: EGD with control of bleeding Talent Sourcer: MD Monzon Deborah E. ASA Classification: III Indications: 1. Melena 2. Nausea and vomiting Instrument: diagnostic gastroscope Meds Received: MAC Patient's Tolerance: good Complications: none Extent Reached: second part of duodenum Procedure: Note: Informed consent was obtained prior to procedure. Risks and benefits of procedure were discussed with patient. Potential complications discussed included perforation, bleeding, abdominal pain, and adverse reaction to medications. It was explained that iany or all of these complications could result in the need for extended hospitalization, emergency surgery, transfusion of packed red blood cells (with the risk of HIV or hepatitis virus), intubation with mechanical ventilation, and possible need for antibiotics. It was further explained that an existing tumor polyp or mucosal abnormality might not be identified at the time of the procedure thus resulting in a missed opportunity for early diagnosis and treatment of a gastrointestinal malignancy or disease with possible interval development of a gastrointestinal cancer or other disease with possible worsening of clinical condition in the interval between endoscopies. It was also discussed that complications are not limited to those listed above. Possible alternatives to endoscopic treatment or evaluation were discussed. All questions were answered. Continuous EKG and blood pressure monitors were attached. Supplemental oxygen was provided with O2 Sat monitoring. Patient was placed in the left lateral decubitus position. A surgical timeout was performed. All persons in the room were identified. All concerns were expressed and answered. A bite block was placed in the mouth and sedation was administered by anesthesia and titrated to comfort prior to starting the procedure. The Olympus upper endoscope was advanced under direct vision to the level of the third portion of the duodenum. Esophagus: The esophagus had a normal mucosal vascular pattern throughout its entirety. The GE junction was identified and was normal. The Z line was located at 35 cm from the incisors. There was a Milena-Marinelli tear located on the gastric side of the GE junction with white-based exudate which was actively bleeding. 3 mL of epinephrine was injected around the Milena-Marinelli tear but not directly into it with cessation of bleeding. Was then treated with BiCAP electrocautery with complete cessation of bleeding. Given its location and Endo Clip was not placed. Stomach: The stomach had a normal mucosal and vascular pattern throughout its entirety. Retroflexed view of the cardiofundic region revealed a normal mucosal and vascular pattern. There were normal rugae and normal distensibility. The pylorus was patent and easily intubated. Duodenum: The duodenum was fully examined from bulb down to the third portion. There was a normal mucosal vascular pattern throughout. With the endoscope in the forward-viewing position, it was slowly withdrawn and all areas were re-inspected and findings are as described previously. Patient tolerated the procedure well. EBL: 2 mL Specimens Removed: None Findings: Milena-Marinelli tear with active bleeding Impression: Milena-Marinelli tear with active bleeding Recommendations: 1. Hold all antithrombotic agents 2. Continue IV PPI BID 3. Patient to remain NPO 4. If no further bleeding in a.m. would advance diet gradually beginning with clear liquids 5. Would discuss with cardiology whether patient needs both Plavix and Eliquis prior to discharge 6. Continue serial H&H and transfuse to keep hemoglobin between 7 and 8
[2018-05-02 16:00] VITALS: BP 106/60
--- NOTE | 2018-05-02 16:24 | Cons- Cardiology ---
General Information and HPI Consulting Request Date of Consult: 05/02/18 Requested By: Niko Jewell MD Reason for Consult: GI bleeding on anticoagulation and antiplatelet therapy for atrial fibrillation and coronary artery disease, respectively. Source of Information: patient, old records Exam Limitations: clinical condition History of Present Illness: Mrs. Farida Sanon patient is an 88-year-old female with a history of dementia, hypothyroidism, pulmonary nodules, pulmonary hypertension, hypertension, dyslipidemia, atrial fibrillation on the NOAC (apixaban), coronary artery disease s/p ACS with PCI/JOSE RAFAEL to her LCx (11/02/2017) on antiplatelet therapy (aspirin, clopidogrel), and concentric left ventricular hypertrophy with diastolic dysfunction, and HFpEF who we are asked to evaluate and help manage in regard to her anticoagulation and antiplatelet therapy. She is a poor historian and the majority of her HPI was obtained from her EHR, but she does state that she has been experiencing bilateral lower extremity discomfort for which she has been taking acetaminophen. On 04/28/2018 she experienced postprandial vomiting of nonbloody bilious material. On 04/29/2018 she developed formed black tarry stool. Her son called her PCP who recommended ED evaluation, but she opted against this at that time. She continued to have black tarry stool over the next 2 days with associated weakness and fatigue, which ultimately prompted the ED evaluation. Earlier today (05/02/2018) she underwent EGD by Amberly Monzon M.D. during which an actively bleeding Milena-Marinelli tear was discovered and successful managed (epinephrine injection around the tear; BiCAP cautery) with cessation of bleeding. She was last hospitalized here, 10/30-11/02/2017 with altered mental status, headache, fatigue etc. with ECG changes, and a troponin I elevation consistent with a NSTEMI and HFpEF. She was transferred to [facility] where she was discovered to be in "new onset" atrial fibrillation and underwent cardiac catheterization on 11/02/2017 that revealed: LM- patent, LAD- diffuse luminal irregularities, large Dx with distal 70% stenosis, LCx- 95% long proximal to mid vessel stenosis with associated diffuse luminal irregularities, RCA-dominant with 50% ostial PDA stenosis and diffuse luminal irregularities, LV gram- EF 60% , 3+ MR. Based on the above, the culprit LCx stenosis underwent successful PCI/JOSE RAFAEL ( [employer]nergy) with 0% residual stenosis and INDIRA-3 flow and planned postprocedural echocardiography to reassess the degree of MR. The discharge summary and repeat echocardiographic report are not available and it appears as though the patient was lost to cardiology follow-up. Allergies/Medications Allergies: Coded Allergies: No Known Allergies (10/30/17) Home Med List: Apixaban (Eliquis) 2.5 MG TABLET 1 TAB PO BID AFIB (Reported) Aspirin (Aspirin*) 81 MG TAB.CHEW 1 TAB PO DAILY CAD (Reported) Atorvastatin Calcium 10 MG TABLET 1 TAB PO DAILY hyperlipidemia Clopidogrel Bisulfate (Plavix) 75 MG TABLET 1 TAB PO DAILY blood thinner Furosemide (Lasix) 20 MG TABLET 1 TAB PO BID SWELLING (Reported) Sotalol (Betapace) 80 MG TABLET 1 TAB PO DAILY AFIB (Reported) Review of Systems Review of Systems: A 14 point system review was attempted, but was unsuccessful given the patient's dementia. 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 Home Who Do You Live With? child (Son Frank) Services at Home: None Primary Language: Icelandic Smoking Status: Never Smoked Functional Ability ADLs Independent: dressing, eating, toileting, bathing. Ambulation: independent IADLs Independent: shopping, housework, finances, food prep, telephone, transportation , medication admin. Exam & Diagnostic Data Vital Signs and I&O Vital Signs Date Time Temp Pulse Resp B/P B/P Pulse O2 O2 Flow FiO2 Mean Ox Delivery Rate 05/02 1600 98.1 88 22 106/60 99 Room Air 05/02 1200 98 Room Air 05/02 0800 98 Room Air 05/02 0800 98.0 88 20 108/68 98 Room Air 05/02 0305 98.0 90 16 122/74 99 Room Air 05/02 0139 98.4 92 18 113/53 100 Room Air 05/02 0137 100 Room Air 05/02 0124 98.4 61 18 107/55 99 Room Air 05/02 0008 98.7 88 18 119/58 99 Room Air 05/01 2243 98.7 97 16 114/56 100 Room Air 05/01 2123 99.0 05/01 2050 99.0 102 16 121/58 99 Room Air Intake & Output 05/02 1600 05/02 0800 05/02 0000 05/01 1600 05/01 0800 05/01 0000 Intake Total 500 700 300 Output Total 300 Balance 200 700 300 Intake, Blood 350 700 300 Product Intake, IV 150 Intake, Oral 0 Output, Urine 300 Patient 160 lb 130 lb Weight Weight Bed scale Measurement Method Physical Exam: Well-developed, well-nourished elderly female in no acute distress with nasal oxygen in place. Vital signs: See above. HEENT: Normocephalic, atraumatic, EOMI, slightly dry mucous membranes. Neck: No JVD, no bruits. Lungs: Clear to auscultation. Heart: S1, S2 with a grade 2/6 systolic murmur. PMI fifth ICS MCL. No gallop or rub. Abdomen: Soft, nontender, positive bowel sounds. Extremities: No edema. Assessment/Plan Assessment/Plan 88-yo-H-f w/ hx of dementia, hypothyroidism, pul nodules, pul HTN, HTN, HLD, AF on NOAC (apixaban), CAD s/p ACS w/ PCI/JOSE RAFAEL LCx (11/02/2017) on antiplatelet Rx ( asa, clopidogrel), LVH w/ DD, & HFpEF who presented w/ a GI bleed 2/2 an actively bleeding M-W tear successfully managed (epi injections; BiCAP cautery) who we are asked to evaluate & help manage in regard to her AC & antiplatelet Rx. She has a [id number] Score of 6 (HF=1, HTN=1, 88 years=2, MS=1, F=1) w/ an unadjusted stroke rate of 9.7%/yr &, as such, would typically recommend anticoagulation. Her head CT also suggested the possibility of an old stroke which would add an additional 2 points to her score and stroke risk. However, prior to her NSTEMI, she had no history of AF and has been in sinus rhythm during this hospitalization. One might consider placing a Soko recording system to see if PAF is occurring. If it is, would naturally restart the NOAC. If there is no PAF would discontinue AC. Fortunately, her GI bleed has stopped and while it would be ideal to maintain her on dual antiplatelet therapy, she is 6 months out from her ACS w/PCI/JOSE RAFAEL and the risk of maintaining her on this appears prohibitive, especially with her potential requirement for AC ("triple therapy"). Recommendations: * Continue ICU management, follow-up H/H closely, follow-up troponins, and ECGs. * Given her history of CAD would aim to maintain her hemoglobin at or above 8.0 g/dl. * Continue to hold AC and antiplatelet Rx for the short-term. Would not restart NOAC unless there is evidence of AF. Would consider holding the asa indefinitely and restarting only clopidogrel when okay with GI. * Echocardiogram to reassess her LV function, degree of LVH, degree of MR, degree of pulmonary hypertension, etc. * Continue n.p.o. & IV PPI twice daily as per GI. Hold all antithrombotic agents * Check magnesium, follow potassium, recheck BUN/creatinine, etc. * DVT prophylaxis. * Obtain discharge summary and echocardiogram report from her October 2017 admission at [facility]. Further recommendations will follow, Thank you. Consult Acknowledgment - Thank you for your consult request.
[2018-05-02 20:33] LABS: ABSOLUTE BASOPHIL COUNT 0 /CUMM (0.0-0.2); ABSOLUTE EOSINOPHIL COUNT 0.2 /CUMM (0.0-0.7); ABSOLUTE GRANULOCYTE CT 8.8 /CUMM (1.4-6.5); ABSOLUTE LYMPH COUNT 1.1 /CUMM (1.2-3.4); BASOPHIL % 0.3 % (0.0-2.0); EOSINOPHIL % 1.6 % (0-5); GRANULOCYTE % 79.2 % (42.2-75.2); HEMATOCRIT 26.9 % (37-47); MEAN CORPUSCULAR HGB 29.7 PG (27.0-31.0); MEAN CORPUSCULAR HGB CONC 33.4 G/DL (33.0-37.0); MEAN CORPUSCULAR VOLUME 89.1 FL (81.0-99.0); MEAN PLATELET VOLUME 7.9 FL (7.4-10.4); RBC DISTRIBUTION WIDTH 16.7 % (11.5-14.5); WHITE BLOOD CELL COUNT 11.1 /CUMM (4.8-10.8)
[2018-05-02 21:08] LABS: PLATELET COUNT 224 /CUMM (130-400); RED BLOOD CELL CT 3.02 /CUMM (4.20-5.40)
[2018-05-03] VITALS: BP 106/64
[2018-05-03 05:14] LABS: ABSOLUTE BASOPHIL COUNT 0 /CUMM (0.0-0.2); ABSOLUTE EOSINOPHIL COUNT 0.2 /CUMM (0.0-0.7); ABSOLUTE GRANULOCYTE CT 9.4 /CUMM (1.4-6.5); ABSOLUTE LYMPH COUNT 1.1 /CUMM (1.2-3.4); ABSOLUTE MONOCYTE COUNT 1.1 /CUMM (0.10-0.60); BASOPHIL % 0.2 % (0.0-2.0); EOSINOPHIL % 1.8 % (0-5); GRANULOCYTE % 79.6 % (42.2-75.2); MEAN CORPUSCULAR HGB 30.1 PG (27.0-31.0); MEAN CORPUSCULAR HGB CONC 33.6 G/DL (33.0-37.0); MEAN CORPUSCULAR VOLUME 89.6 FL (81.0-99.0); MEAN PLATELET VOLUME 7.7 FL (7.4-10.4); PLATELET COUNT 216 /CUMM (130-400); RBC DISTRIBUTION WIDTH 17.4 % (11.5-14.5); WHITE BLOOD CELL COUNT 11.8 /CUMM (4.8-10.8)
--- NOTE | 2018-05-03 07:24 | PN- Resident CRCU ---
LamineMaggie Rober Bonilla 05/03/18 0724: Subjective HPI/CRCU Issues: No overnight event. Patient had no more episode of black stool/N/V/D, denied any specific pain or discomfort, and conversational at bedside. No other specific complaint. Tolerated clear liquid well. Pending Echo today Objective Vital Signs & I&O Last 8 Hrs of Vitals and I&O: Intake & Output 05/03 1600 05/03 0800 05/03 0000 Intake Total 60 Output Total 350 300 Balance -350 -240 Intake, Oral 60 Output, Urine 350 300 Laboratory Tests 05/03 05/02 0500 2004 Chemistry Sodium (137 - 145 mmol/L) 141 Potassium (3.5 - 5.1 mmol/L) 4.0 Chloride (98 - 107 mmol/L) 108 H Carbon Dioxide (22 - 30 mmol/L) 24 Anion Gap (5 - 16) 9 BUN (7 - 17 mg/dL) 25 H Creatinine (0.5 - 1.0 mg/dL) 1.0 Estimated GFR (>60 ml/min) 52 L Glucose (65 - 99 mg/dL) 81 Calcium (8.4 - 10.2 mg/dL) 8.4 Phosphorus (2.5 - 4.5 mg/dL) 4.6 H Magnesium (1.6 - 2.3 mg/dL) 2.2 Total Bilirubin (0.2 - 1.3 mg/dL) 0.9 AST (14 - 36 U/L) 20 ALT (9 - 52 U/L) 35 Albumin (3.5 - 5.0 g/dL) 2.8 L Hematology CBC w Diff NO MAN DIFF REQ NO MAN DIFF REQ WBC (4.8 - 10.8 /CUMM) 11.8 H 11.1 H RBC (4.20 - 5.40 /CUMM) 2.90 L 3.02 L Hgb (12.0 - 16.0 G/DL) 8.7 L 9.0 L Hct (37 - 47 %) 26.0 L 26.9 L MCV (81.0 - 99.0 FL) 89.6 89.1 MCH (27.0 - 31.0 PG) 30.1 29.7 MCHC (33.0 - 37.0 G/DL) 33.6 33.4 RDW (11.5 - 14.5 %) 17.4 H 16.7 H Plt Count (130 - 400 /CUMM) 216 224 MPV (7.4 - 10.4 FL) 7.7 7.9 Gran % (42.2 - 75.2 %) 79.6 H 79.2 H Lymphocytes % (20.5 - 51.1 %) 9.5 L 9.5 L Monocytes % (1.7 - 9.3 %) 8.9 9.4 H Eosinophils % (0 - 5 %) 1.8 1.6 Basophils % (0.0 - 2.0 %) 0.2 0.3 Absolute Granulocytes (1.4 - 6.5 /CUMM) 9.4 H 8.8 H Absolute Lymphocytes (1.2 - 3.4 /CUMM) 1.1 L 1.1 L Absolute Monocytes (0.10 - 0.60 /CUMM) 1.1 H 1.0 H Absolute Eosinophils (0.0 - 0.7 /CUMM) 0.2 0.2 Absolute Basophils (0.0 - 0.2 /CUMM) 0 0 06/26 1200 Hematology CBC w Diff NO MAN DIFF REQ WBC (4.8 - 10.8 /CUMM) 10.7 RBC (4.20 - 5.40 /CUMM) 3.08 L Hgb (12.0 - 16.0 G/DL) 9.2 L Hct (37 - 47 %) 27.5 L MCV (81.0 - 99.0 FL) 89.1 MCH (27.0 - 31.0 PG) 29.8 MCHC (33.0 - 37.0 G/DL) 33.4 RDW (11.5 - 14.5 %) 16.6 H Plt Count (130 - 400 /CUMM) 214 MPV (7.4 - 10.4 FL) 8.1 Gran % (42.2 - 75.2 %) 77.3 H Lymphocytes % (20.5 - 51.1 %) 13.4 L Monocytes % (1.7 - 9.3 %) 7.6 Eosinophils % (0 - 5 %) 1.5 Basophils % (0.0 - 2.0 %) 0.2 Absolute Granulocytes (1.4 - 6.5 /CUMM) 8.2 H Absolute Lymphocytes (1.2 - 3.4 /CUMM) 1.4 Absolute Monocytes (0.10 - 0.60 /CUMM) 0.8 H Absolute Eosinophils (0.0 - 0.7 /CUMM) 0.2 Absolute Basophils (0.0 - 0.2 /CUMM) 0 Exam General Appearance: alert, awake, comfortable Head: atraumatic, normal appearance Respiratory: normal breath sounds, chest non-tender, no respiratory distress Gastrointestinal: soft, non-tender, decreased BS Extremities: normal inspection, no edema Current Medications: Current Medications Sig/Alfredo Start time Last Medication Dose Route Stop Time Status Admin Acetaminophen 650 MG .STK-MED ONE 05/02 1023 DC PO 05/02 1024 Acetaminophen 650 MG Q6P PRN 05/01 2230 AC 05/02 PO 1028 Acetaminophen 1,000 MG Q6P PRN 05/01 2230 AC IV Atorvastatin Calcium 10 MG 1700 05/02 1700 AC 05/02 PO 1651 Chlorhexidine 1 GM .STK-MED ONE 05/02 1339 DC Gluconate TOP 05/02 1340 Clopidogrel Bisulfate 75 MG DAILY 05/02 09 DC PO Epinephrine 1 MG .STK-MED ONE 05/02 1339 DC SC 05/02 1340 Furosemide 20 MG BID 05/02 09 DC PO Pantoprazole Sodium 40 MG BID 05/02 0900 AC 05/02 IV 2051 Sotalol HCl 40 MG BID 05/02 0900 AC 05/02 PO 2051 Impression/Plan Impression/Problem List Impression: VS: stable afebrile In/Out/24hrs: 560/980 Sedation: None Vent Setting: None [id number]: NGTD #acute blood loss anemia, resolving #melena, resolved #ZAIDA 2/2 dehydration, resolved #r/o demand ischemia/type II MD #Metabolic encephalopathy 2/2 GI bleed/Dehydration?, improving on mental status #Leukocytosis : reactive #PMHx of CAD, S/P NSTEMI S/P JOSE RAFAEL LCx, HFpEF, HLD, PAF Respiratory: -No issues at this point, will continue monitor, patient currently breathing comfortably on room air. -Baseline CXR had no acute issues. Infection: -Patient's leukocytosis was likely reactive, without any fever on presentation. There is no active signs of infection based on imaging/other labs/history. We will continue to monitor for signs of infection. Cardio: -Due to the risk of active bleeding, patient was now on hold off aspirin, Eliquis, Plavix, appreciated cardiology evaluation. -Pending echo today. Hem: - hgb 5.5 -> 7.6 -> 8.7 s/p 3U PRBC on latest lab. - No signs of active bleeding ever since admission. Patient's last bout of diarrhea was Tuesday, and no diarrhea before Tuesday. - Guaiac all stools. - PT/INR WNL. - Holding blood thinners as above. May restart Plavix per cardio. Patient had no BMs since EGD, will monitor on Telemetry overnight and pending restart Plavix tomorrow. Metabolism: - Cr 1.2 -> 1.1 -> 1.0, likely ZAIDA 2/2 dehydration, currently resolved. She had not receive any fluid since admission due to the concern of one overload based on past medical history of CHF. Will continue monitor renal function. No signs of edematous. - Will hold off Lasix for now. Alimentary: - NPO s/p EGD w/ dx of Milena marinelli tear, would advance to full liquid per GI this morning, and reevaluate patient's tolerance. - Will monitor off Lasix/Fluid for now, and if needed, D5w 1/2 NS x 1L at 50cc/ hr. - At baseline, patient was eating a regular diet without complaint. Neuro: -Patient was being a poor historian on presentation, however now she is AOx3 and conversational.. - Strength 5/5 in all extremities, with grossly intact sensation. Cont monitor DVT prophylaxis: ALPS Clear liquid diet IV Access: Peripheral IV Full Code Problem List: 1. GI bleed Pain Ratin Tomorrow's Labs & Rationales: ICU/CBC Plan DVT/Prophylaxis: Niko Gallardo MD 05/03/18 0900: Attending MD Review Statement Attending Sign Off Attending Cosign Statement: I have: examined this patient, reviewed avalbl EMR data, personally reviewd images, discussd w/resident/PA/PASTEURISER OPERATOR, discussed mgmt plan w/vicky, discussed mgmt plan w/CM, discussed mgmt plan w/pt, agreed w/resident/PA/PASTEURISER OPERATOR, amended to note. Other Findings: I, Niko Jewell M.D. have examined this patient, reviewed available EMR data, personally reviewed images, discussed with resident/PA/PASTEURISER OPERATOR, discussed management plan with housestaff and nursing staff, discussed managment plan all of healthcare providers, discussed management plan with patient and/or family, agreed with resident/PA/PASTEURISER OPERATOR. The past history and parts of the chart have been autopopulated. Impression 88-year-old woman * Acute blood loss anemia secondary to Milena-Marinelli tear * Recent PCI Plan -NPO -GI consultation appreciated, s/p endoscopy -Cardiology consultation appreciated -s/p prbcs, monitor cbcs -a/c held DVT prophylaxis at all times TTS 35 min
[2018-05-03 08:00] VITALS: BP 120/60
--- NOTE | 2018-05-03 11:12 | Transfer of Care Summary ---
Hospital Course Course Hospital Course: Reason for ICU admission: BRBPR, Hypotension HPI: Ms. Sanon is a 88 yo F w/ PMh of CAD, S/P NSTEMI S/P JOSE RAFAEL, HFpEF (last echo 10/[address] Calvert), HLD, PAF, ascended to the ER with chief complaint of black stool starting Tuesday after she consumed some canned soup was causing her to vomit nonbloody ileus material, and subsequently on Tuesday patient's had several episodes of black stool. The son contacted the PCP at first however did not go to the hospital due to patient refusal, however patient continued to be sick on Tuesday and Tuesday that her son eventually brought her to the ER. Per son, patient's lightheadedness and weakness worsened, without any similar symptoms in the past. Patient also, complaining of bilateral thigh pain, more so in the inguinal region, however denied chest pain despite endorsing some "funny feelings or chest" on presentation to ER, along with dizziness which was found to be orthostatic positive in the ER, but denied palpitation/sick contacts /abdominal pain/urinary complaints/bilateral lower extremity edema. Patient was unclear whether she took any NSAIDs for pain however ibuprofen sounded familiar to her. During our clinical interaction, patient appeared to be more oriented and conversational, and awared of what was going on before being brought to the ER. On Presentation: Vitals- Temp 98.0-99.0, HR 88-102, RR 16-20, SBP 121-162, O2 94-99% room air Physical Exam -General: Thin elderly woman appearing confused but in no acute distress -HEENT: NCAT, PERRL, EOMI, anicteric sclera, moist mucous membranes -Neck: Supple, no JVP, no bruits, trachea midline, no accessory respiratory muscle use -Cardio: 2/6 betancourt systolic tricuspid murmur; regular rate and rhythm -Pulmonary: Clear to auscultation bilaterally -Abdomen: Soft, non-tender, non-distended, bowel sounds intact -Neuro: Awake and alert, CN II-XII grossly intact, oriented to person/place/time -Extremities: Normal pulses, no edema Labs / Imaging / Studies -CBC: WBC 16.3, hemoglobin 5.5, hematocrit 16.1, platelet 288 -BMP: Sodium 138, potassium 4.1, chloride 102, CO2 28, BUN 42, creatinine 1.2, anion gap 9, glucose 111 -LFT: Within normal limit -Misc: Troponin I 0.01, INR 1.58 -EKG 11/02/17: Normal sinus rhythm with hyperacute T waves -EKG 05/01/18: No change from previous -Echocardiogram 10/2017: LVEF 60% with stage II diastolic dysfunction without any regional wall motion abnormalities and moderate/severe pulmonary hypertension -CT chest/abdomen/pelvis without IV contrast: 1. No acute intra-abdominal or intrapelvic abnormalities. There is mild to moderate colonic diverticulosis without evidence of acute diverticulitis. 2. Marked cholelithiasis without findings of acute cholecystitis. 3. A peripherally calcified 4.9 cm cardiac structure at the posterior/inferior margin of the left atrioventricular groove, possibly a chronic peripherally calcified collection/hematoma, a partially calcified aneurysm, or sequela of prior infection. Recommend correlation with the results of a prior echocardiogram from 10/31/2017. 4. 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 Diffuse ankylosis of the thoracal lumbar spine is either due to ankylosing spondylitis or diffuse idiopathic skeletal hyperostosis. Problem List #acute blood loss anemia, resolving #melena, resolved #ZAIDA 2/2 dehydration, resolved #r/o demand ischemia/type II CO #Metabolic encephalopathy 2/2 GI bleed/Dehydration?, improving on mental status #Leukocytosis : reactive #PMHx of CAD, S/P NSTEMI S/P JOSE RAFAEL LCx, HFpEF, HLD, PAF Hospital Course: Respiratory: Patient had no issues of respiratory or lung functions on admission, was continued on room air with satisfying O2 saturations. Baseline chest x-ray on admission had no acute issues at this point. Will continue monitor Infection: On admission, patient had leukocytosis, however was likely reactive without any fever on presentation with any signs of infection at this point. Chest x-ray was clear without any acute issues. Patient had no active signs of infection based on imaging/labs/history. Continue to monitor off antibiotics. Cardio: Patient has significant past medical history of CAD S/P JOSE RAFAEL, and history of A. fib, however currently on sinus rhythm over the ICU course. Patient's blood thinners including aspirin, Plavix, and Eliquis have been hold since admission to avoid increase in risk of active bleeding. Patient's last echo was done back in [address] Calvert, is pending another echo currently inpatient. Cardiology is on board recommend to restart Plavix and only restart Eliquis if patient was found to have A. fib on telemetry monitoring during the rest of the hospital course. EKG/troponin 3 since admission have been negative and patient remained in sinus rhythm. We will continue monitoring on telemetry for, and follow further cardiology recommendations. Hem: Patient's last melena bowel movement was on Monday 04/30, and had no more bloody bowel movement/black stool ever since admission. Patient underwent EGD and had no more bowel movements prior to being transferred to the telemetry floor. Patient's hemoglobin trended 5.5 -> 7.6 -> 8.7 s/p 3U PRBC on latest lab. PT/INR WNL. Patient is currently on hold off all blood thinners as above, will monitor on Telemetry overnight and pending restart Plavix tomorrow if no active bleeding. Metabolism: Patient had elevated creatinine at 1.2 -> 1.1 -> 1.0 on latest lab, representing a clinical picture of likely ZAIDA 2/2 dehydration from diarrhea/blood loss from melena. She had not receive any fluid since admission due to the concern of one overload based on past medical history of CHF. Will continue monitor renal function. No signs of edematous. At home patient was taking Lasix 20 mg twice daily for HFP EF, however we will still holding for now and pending restart per cardiology after echo. Alimentary: Patient has underwent EGD without complication and was diagnosed with Milena- Marinelli tear, possibly secondary to nausea vomiting prior to the black stool event on 04/29. Active bleeding site was cauterized under EGD, and patient was supposed to continue on IV PPI twice daily, was switched to p.o. on discharge. Patient was kept n.p.o. overnight and started on clear liquid diet, tolerated well on 05/03 morning, currently on full liquid diet for lunch and pending to advance to regular diet for dinner of 05/03. At baseline, patient was eating a regular diet without complaint. Neuro: On admission, patient was being a poor historian on presentation, however patient's mental status slowly improved and she is currently now AAO 3, was conversational and strength 5/5 in all extremities, was grossly intact sensations. Will continue monitor, and currently no active neurological issues to be managed. DVT prophylaxis: ALPS Full liquid diet IV Access: Peripheral IV Full Code Interval events in the ICU: see Above Mechanical ventilation: No NIPPV: No Antibiotics plan: N/A Catheters/ Lines plan: None Things to be followed up in the floor: - Cardio note on restarting Plavix - Echo - GI note follow up and outpatient referral - Bridge to PO PPI - PT eval for discharge disposition Significant Procedures: Medical History: unchanged Mental Status: alert/oriented Heart/Lung Eval Prior to Sedation: within normal limits Candidate for Sedation? Yes Procedure Date: 05/02/18 Procedure Type: EGD with control of bleeding Tour Conductor: MD Na, Amberly Mao ASA Classification: III Indications: 1. Melena 2. Nausea and vomiting Instrument: diagnostic gastroscope Meds Received: MAC Patient's Tolerance: good Complications: none Extent Reached: second part of duodenum Findings: Milena-Marinelli tear with active bleeding Impression: Milena-Marinelli tear with active bleeding Recommendations: 1. Hold all antithrombotic agents 2. Continue IV PPI BID 3. Patient to remain NPO 4. If no further bleeding in a.m. would advance diet gradually beginning with clear liquids 5. Would discuss with cardiology whether patient needs both Plavix and Eliquis prior to discharge 6. Continue serial H&H and transfuse to keep hemoglobin between 7 and 8 Assessment/Plan: see AP
[2018-05-03 12:26] VITALS: BP 126/70
[2018-05-03 14:47] VITALS: BP 112/60
--- NOTE | 2018-05-03 14:51 | PN- Gastroenterology ---
Assessment/Plan GI Assessment/Recommendations: ASSESSMENT: 1. Milena-Marinelli tear with bleeding. No further bleeding status post injection with epinephrine and BiCAP electrocautery 2. Acute blood loss anemia. H&H is stable 3. Chronic use of anticoagulants/antiplatelet agents 4. Melena 5. Atrial fibrillation RECOMMENDATIONS: 1. We will continue to monitor for signs of recurrent bleeding 2. Would hold Plavix until tomorrow 3. Would advance diet gradually 4. We will continue on IV PPI 5. At discharge we will consider discharge on Protonix 40 mg p.o. every morning for 6-8 weeks. 6. Would have patient follow-up with Dr. Monzon. Subjective Subjective: Patient is doing well. She is tolerating a diet. She has had no bowel movement. She has had no melena. She has had no chest pain shortness of breath , cough, fever, or shaking chills. Her Plavix is still being held. Objective Vital Signs and I&Os Vital Signs Date Time Temp Pulse Resp B/P B/P Pulse O2 O2 Flow FiO2 Mean Ox Delivery Rate 05/03 1226 98.2 55 20 126/70 98 Room Air 05/03 0800 97.1 66 16 120/60 99 Room Air 05/03 0000 98.8 68 16 106/64 98 Room Air 05/02 1600 98.1 88 22 106/60 99 Room Air Intake & Output 05/03 1600 05/03 0400 05/02 1600 05/02 0400 05/01 1600 05/01 0400 Intake Total 60 1200 300 Output Total 350 300 300 Balance -350 -240 900 300 Intake, Blood 1050 300 Product Intake, IV 150 Intake, Oral 60 0 Output, Urine 350 300 300 Patient 160 lb 160 lb Weight Weight Bed scale Measurement Method Physical Exam General Appearance: well developed/nourished, no apparent distress, comfortable Respiratory: normal breath sounds, lungs clear Cardiovascular: systolic murmur, irregularly irregular Abdomen: normal bowel sounds, soft, non-tender Neurologic/Psychiatric: awake, alert, oriented x 3 Current Medications: Current Medications Sig/Alfredo Start time Last Medication Dose Route Stop Time Status Admin Acetaminophen 650 MG Q6P PRN 05/01 2230 AC 05/03 PO 1202 Acetaminophen 1,000 MG Q6P PRN 05/01 2230 AC IV Atorvastatin Calcium 10 MG 1700 05/02 1700 AC 05/02 PO 1651 Pantoprazole Sodium 40 MG BID 05/02 900 AC 05/03 IV 0814 Sotalol HCl 40 MG BID 05/02 09 AC 05/03 PO 0814 Results Pertinent Lab Results: Laboratory Tests 05/03 Chemistry Sodium (137 - 145 mmol/L) 141 Potassium (3.5 - 5.1 mmol/L) 4.0 Chloride (98 - 107 mmol/L) 108 H Carbon Dioxide (22 - 30 mmol/L) 24 Anion Gap (5 - 16) 9 BUN (7 - 17 mg/dL) 25 H Creatinine (0.5 - 1.0 mg/dL) 1.0 Estimated GFR (>60 ml/min) 52 L Glucose (65 - 99 mg/dL) 81 Calcium (8.4 - 10.2 mg/dL) 8.4 Phosphorus (2.5 - 4.5 mg/dL) 4.6 H Magnesium (1.6 - 2.3 mg/dL) 2.2 Total Bilirubin (0.2 - 1.3 mg/dL) 0.9 AST (14 - 36 U/L) 20 ALT (9 - 52 U/L) 35 Albumin (3.5 - 5.0 g/dL) 2.8 L Hematology CBC w Diff NO MAN DIFF REQ NO MAN DIFF REQ WBC (4.8 - 10.8 /CUMM) 11.8 H 11.1 H RBC (4.20 - 5.40 /CUMM) 2.90 L 3.02 L Hgb (12.0 - 16.0 G/DL) 8.7 L 9.0 L Hct (37 - 47 %) 26.0 L 26.9 L MCV (81.0 - 99.0 FL) 89.6 89.1 MCH (27.0 - 31.0 PG) 30.1 29.7 MCHC (33.0 - 37.0 G/DL) 33.6 33.4 RDW (11.5 - 14.5 %) 17.4 H 16.7 H Plt Count (130 - 400 /CUMM) 216 224 MPV (7.4 - 10.4 FL) 7.7 7.9 Gran % (42.2 - 75.2 %) 79.6 H 79.2 H Lymphocytes % (20.5 - 51.1 %) 9.5 L 9.5 L Monocytes % (1.7 - 9.3 %) 8.9 9.4 H Eosinophils % (0 - 5 %) 1.8 1.6 Basophils % (0.0 - 2.0 %) 0.2 0.3 Absolute Granulocytes (1.4 - 6.5 /CUMM) 9.4 H 8.8 H Absolute Lymphocytes (1.2 - 3.4 /CUMM) 1.1 L 1.1 L Absolute Monocytes (0.10 - 0.60 /CUMM) 1.1 H 1.0 H Absolute Eosinophils (0.0 - 0.7 /CUMM) 0.2 0.2 Absolute Basophils (0.0 - 0.2 /CUMM) 0 0 05/02 05/02 1200 1005 Chemistry Troponin I (< 0.11 ng/ml) < 0.01 Hematology CBC w Diff NO MAN DIFF REQ WBC (4.8 - 10.8 /CUMM) 10.7 RBC (4.20 - 5.40 /CUMM) 3.08 L Hgb (12.0 - 16.0 G/DL) 9.2 L Hct (37 - 47 %) 27.5 L MCV (81.0 - 99.0 FL) 89.1 MCH (27.0 - 31.0 PG) 29.8 MCHC (33.0 - 37.0 G/DL) 33.4 RDW (11.5 - 14.5 %) 16.6 H Plt Count (130 - 400 /CUMM) 214 MPV (7.4 - 10.4 FL) 8.1 Gran % (42.2 - 75.2 %) 77.3 H Lymphocytes % (20.5 - 51.1 %) 13.4 L Monocytes % (1.7 - 9.3 %) 7.6 Eosinophils % (0 - 5 %) 1.5 Basophils % (0.0 - 2.0 %) 0.2 Absolute Granulocytes (1.4 - 6.5 /CUMM) 8.2 H Absolute Lymphocytes (1.2 - 3.4 /CUMM) 1.4 Absolute Monocytes (0.10 - 0.60 /CUMM) 0.8 H Absolute Eosinophils (0.0 - 0.7 /CUMM) 0.2 Absolute Basophils (0.0 - 0.2 /CUMM) 0 05/02 05/02 0750 0430 Chemistry Sodium (137 - 145 mmol/L) 139 Potassium (3.5 - 5.1 mmol/L) 3.9 Chloride (98 - 107 mmol/L) 105 Carbon Dioxide (22 - 30 mmol/L) 26 Anion Gap (5 - 16) 8 BUN (7 - 17 mg/dL) 38 H Creatinine (0.5 - 1.0 mg/dL) 1.1 H Estimated GFR (>60 ml/min) 47 L BUN/Creatinine Ratio (7 - 25 %) 34.5 H TIBC (265 - 497 ug/dL) 287 Ferritin (11.1 - 264 ng/mL) 31.7 Troponin I (< 0.11 ng/ml) 0.02 Hematology CBC w Diff NO MAN DIFF REQ WBC (4.8 - 10.8 /CUMM) 12.2 H RBC (4.20 - 5.40 /CUMM) 2.46 L Hgb (12.0 - 16.0 G/DL) 7.6 L Hct (37 - 47 %) 22.4 L MCV (81.0 - 99.0 FL) 91.2 MCH (27.0 - 31.0 PG) 30.9 MCHC (33.0 - 37.0 G/DL) 33.9 RDW (11.5 - 14.5 %) 17.1 H Plt Count (130 - 400 /CUMM) 226 MPV (7.4 - 10.4 FL) 8.1 Gran % (42.2 - 75.2 %) 76.6 H Lymphocytes % (20.5 - 51.1 %) 13.4 L Monocytes % (1.7 - 9.3 %) 8.8 Eosinophils % (0 - 5 %) 0.6 Basophils % (0.0 - 2.0 %) 0.6 Absolute Granulocytes (1.4 - 6.5 /CUMM) 9.4 H Absolute Lymphocytes (1.2 - 3.4 /CUMM) 1.6 Absolute Monocytes (0.10 - 0.60 /CUMM) 1.1 H Absolute Eosinophils (0.0 - 0.7 /CUMM) 0.1 Absolute Basophils (0.0 - 0.2 /CUMM) 0.1 Urines Urine Color (YEL,AMB,STR) YEL Urine Clarity (CLEAR) CLEAR Urine pH (5.0 - 8.0) 6.0 Ur Specific [place] (1.001 - 1.035) 1.015 Urine Protein (NEG,<30 MG/DL) NEG Urine Ketones (NEG) NEG Urine Nitrite (NEG) NEG Urine Bilirubin (NEG) NEG Urine Urobilinogen (0.1 - 1.0 EU/dl) 0.2 Ur Leukocyte Esterase (NEG) NEG Ur Microscopic EXAM NOT REQUIRED Urine Hemoglobin (NEG) NEG Urine Glucose (N MG/DL) NEG 05/01 1953 Chemistry Sodium (137 - 145 mmol/L) 138 Potassium (3.5 - 5.1 mmol/L) 4.1 Chloride (98 - 107 mmol/L) 101 Carbon Dioxide (22 - 30 mmol/L) 28 Anion Gap (5 - 16) 9 BUN (7 - 17 mg/dL) 42 H Creatinine (0.5 - 1.0 mg/dL) 1.2 H Estimated GFR (>60 ml/min) 42 L BUN/Creatinine Ratio (7 - 25 %) 35.0 H Glucose (65 - 99 mg/dL) 111 H Calcium (8.4 - 10.2 mg/dL) 8.9 Iron (37 - 170 ug/dL) 59 TIBC (265 - 497 ug/dL) 315 Ferritin (11.1 - 264 ng/mL) 36.1 Total Bilirubin (0.2 - 1.3 mg/dL) 0.2 AST (14 - 36 U/L) 17 ALT (9 - 52 U/L) 18 Alkaline Phosphatase (<127 U/L) 62 Troponin I (< 0.11 ng/ml) 0.01 Total Protein (6.3 - 8.2 g/dL) 5.9 L Albumin (3.5 - 5.0 g/dL) 3.3 L Globulin (1.9 - 4.2 gm/dL) 2.6 Albumin/Globulin Ratio (1.1 - 2.2 %) 1.3 Coagulation PT (9.4 - 12.5 SEC) 17.3 H INR (0.90 - 1.19) 1.58 H APTT (25 - 37 SEC) 28 Hematology CBC w Diff MAN DIFF ORDERED WBC (4.8 - 10.8 /CUMM) 16.3 H RBC (4.20 - 5.40 /CUMM) 1.80 L Hgb (12.0 - 16.0 G/DL) 5.5 *L Hct (37 - 47 %) 16.1 *L MCV (81.0 - 99.0 FL) 89.3 MCH (27.0 - 31.0 PG) 30.4 MCHC (33.0 - 37.0 G/DL) 34.0 RDW (11.5 - 14.5 %) 18.3 H Plt Count (130 - 400 /CUMM) 288 MPV (7.4 - 10.4 FL) 8.8 Gran % (42.2 - 75.2 %) 82.0 H Lymphocytes % (20.5 - 51.1 %) 9.4 L Monocytes % (1.7 - 9.3 %) 8.4 Eosinophils % (0 - 5 %) 0.2 Basophils % (0.0 - 2.0 %) 0 Absolute Granulocytes (1.4 - 6.5 /CUMM) 13.4 H Segmented Neutrophils (42.2 - 75.2 %) 84 H Band Neutrophils (0.0 - 5.0 %) 4 Absolute Lymphocytes (1.2 - 3.4 /CUMM) 1.5 Lymphocytes (20.5 - 51.1 %) 9 L Monocytes (1.7 - 9.3 %) 3 Absolute Monocytes (0.10 - 0.60 /CUMM) 1.4 H Absolute Eosinophils (0.0 - 0.7 /CUMM) 0 Absolute Basophils (0.0 - 0.2 /CUMM) 0 Nucleated RBCs (0.0 - 0.0 /100WBC) 1 H Platelet Estimate (ADEQUATE) VERIFIED BY SMEAR Polychromasia 1+ Anisocytosis 1+ Other Body Source Fld Total RBCs Counted (%) 100
[2018-05-03] MEDS ORDERED: OMEPRAZOLE40 M1 PO (15:33)
[2018-05-03] MEDS ORDERED: PLAVIX75 M1 PO (15:33)
--- NOTE | 2018-05-03 19:01 | PN- Cardiology ---
Subjective Subjective: No complaints. Thus far, maintaining sinus rhythm on telemetry. Objective Vital Signs and I&Os Vital Signs Date Time Temp Pulse Resp B/P B/P Pulse O2 O2 Flow FiO2 Mean Ox Delivery Rate 05/03 1447 98.1 75 20 112/60 90 Room Air 05/03 1226 98.2 55 20 126/70 98 Room Air 05/03 0800 97.1 66 16 120/60 99 Room Air 05/03 0000 98.8 68 16 106/64 98 Room Air Intake & Output 05/03 1600 05/03 0800 05/03 0000 05/02 1600 05/02 0800 05/02 0000 Intake Total 300 60 500 700 300 Output Total 350 300 300 Balance 300 -350 -240 200 700 300 Intake, Blood 350 700 300 Product Intake, IV 150 Intake, Oral 300 60 0 Number 1 Bowel Movements Output, Urine 350 300 300 Patient 160 lb 160 lb 130 lb Weight Weight Bed scale Measurement Method Physical Exam: Well-developed, well-nourished elderly female in no acute distress with nasal oxygen in place. Vital signs: See above. HEENT: Normocephalic, atraumatic, EOMI, slightly dry mucous membranes. Neck: No JVD, no bruits. Lungs: Clear to auscultation. Heart: S1, S2 with a grade 2/6 systolic murmur. PMI fifth ICS MCL. No gallop or rub. Abdomen: Soft, nontender, positive bowel sounds. Extremities: No edema. Assessment/Plan Assessment/Plan 88-yo-H-f w/ hx of dementia, hypothyroidism, pul nodules, pul HTN, HTN, HLD, AF on NOAC (apixaban), CAD s/p ACS w/ PCI/JOSE RAFAEL LCx (11/02/2017) on antiplatelet Rx ( asa, clopidogrel), LVH w/ DD, & HFpEF who presented w/ a GI bleed 2/2 an actively bleeding M-W tear successfully managed (epi injections; BiCAP cautery) who we are asked to evaluate & help manage in regard to her AC & antiplatelet Rx. She has a [id number] Score of 6 (HF=1, HTN=1, 88 years=2, VA=1, F=1) w/ an unadjusted stroke rate of 9.7%/yr &, as such, would typically recommend anticoagulation. Her head CT also suggested the possibility of an old stroke which would add an additional 2 points to her score and stroke risk. However, prior to her NSTEMI, she had no history of AF and has been in NSR during this hospitalization. One might consider placing a [employer] LINQ recording system to see if PAF is occurring. If it is, would naturally, restart the NOAC. If there is no PAF, would discontinue AC. Fortunately, her GI bleed has stopped and while it would be ideal to maintain her on dual antiplatelet therapy, she is 6 months out from her ACS w/PCI/JOSE RAFAEL and the risk of maintaining her on this appears prohibitive, especially with her potential requirement for AC ("triple therapy"). Recommendations: * Continue on telemetry to assess for PAF. * Continue to f/u H/H closely and maintain hgb at or above 8.0 g/dl. * Continue to hold AC. * As per GI can restart clopidogrel. * Would not restart NOAC unless there is evidence of AF. * Follow-up on echocardiogram. * Advance diet as per GI and continue IV PPI twice daily, as per GI. * DVT prophylaxis. Continue telemetry? Yes * As per GI can restart clopidogrel. * Would not restart NOAC unless there is evidence of AF. * Follow-up on echocardiogram. * Advance diet as per GI and continue IV PPI twice daily, as per GI. * DVT prophylaxis. Continue telemetry? Yes
[2018-05-03 20:02] LABS: ABSOLUTE BASOPHIL COUNT 0 /CUMM (0.0-0.2); ABSOLUTE EOSINOPHIL COUNT 0.3 /CUMM (0.0-0.7); ABSOLUTE GRANULOCYTE CT 10.5 /CUMM (1.4-6.5); ABSOLUTE LYMPH COUNT 1.9 /CUMM (1.2-3.4); ABSOLUTE MONOCYTE COUNT 1.6 /CUMM (0.10-0.60); BASOPHIL % 0 % (0.0-2.0); EOSINOPHIL % 2.2 % (0-5); GRANULOCYTE % 73.5 % (42.2-75.2); HEMATOCRIT 30.8 % (37-47); MEAN CORPUSCULAR HGB 30.4 PG (27.0-31.0); MEAN CORPUSCULAR HGB CONC 33.5 G/DL (33.0-37.0); MEAN CORPUSCULAR VOLUME 90.6 FL (81.0-99.0); MEAN PLATELET VOLUME 8.4 FL (7.4-10.4); PLATELET COUNT 301 /CUMM (130-400); WHITE BLOOD CELL COUNT 14.3 /CUMM (4.8-10.8)
[2018-05-03 22:21] VITALS: BP 102/58
[2018-05-04 00:59] VITALS: BP 160/72
[2018-05-04 06:10] VITALS: BP 114/56
[2018-05-04 07:50] LABS: ABSOLUTE BASOPHIL COUNT 0 /CUMM (0.0-0.2); ABSOLUTE EOSINOPHIL COUNT 0.2 /CUMM (0.0-0.7); ABSOLUTE GRANULOCYTE CT 9.7 /CUMM (1.4-6.5); ABSOLUTE LYMPH COUNT 1.3 /CUMM (1.2-3.4); ABSOLUTE MONOCYTE COUNT 1.3 /CUMM (0.10-0.60); BASOPHIL % 0 % (0.0-2.0); EOSINOPHIL % 1.8 % (0-5); GRANULOCYTE % 77.4 % (42.2-75.2); HEMATOCRIT 28.2 % (37-47); MEAN CORPUSCULAR HGB 30.3 PG (27.0-31.0); MEAN CORPUSCULAR HGB CONC 33.6 G/DL (33.0-37.0); MEAN CORPUSCULAR VOLUME 90.3 FL (81.0-99.0); MEAN PLATELET VOLUME 8.3 FL (7.4-10.4); PLATELET COUNT 265 /CUMM (130-400); RBC DISTRIBUTION WIDTH 17.5 % (11.5-14.5); RED BLOOD CELL CT 3.13 /CUMM (4.20-5.40); WHITE BLOOD CELL COUNT 12.6 /CUMM (4.8-10.8)
--- NOTE | 2018-05-04 12:29 | PN- Housestaff ---
Aurelio CERNA,[facility] 05/04/18 1229: Subjective Follow-up For: GI bleed Tele-Events Since Last Visit: Normal sinus rhythm Subjective: Seen and examined resting comfortably. Diet advanced to regular tolerated well no acute events overnight denies any fevers chills nausea vomiting or diarrhea Review of Systems Constitutional: Reports: see HPI. Objective Last 24 Hrs of Vital Signs/I&O Vital Signs Date Time Temp Pulse Resp B/P B/P Pulse O2 O2 Flow FiO2 Mean Ox Delivery Rate 05/04 0800 97 Room Air 05/04 0610 97.6 73 18 114/56 97 Room Air 05/04 0059 98.1 66 22 160/72 98 Room Air 05/03 2221 97.7 81 18 102/58 98 Room Air 05/03 1447 98.1 75 20 112/60 90 Room Air Intake & Output 05/04 1600 05/04 0800 05/04 0000 Intake Total 100 120 Output Total 300 200 Balance -200 -80 Intake, Oral 100 120 Output, Urine 300 200 Patient 159 lb Weight Weight Bed scale Measurement Method Physical Exam General Appearance: Alert, Oriented X3 Lungs: Clear to Auscultation Abdomen: Normal Bowel Sounds, Soft Neurological: Normal Speech Current Medications: Current Medications Sig/Alfredo Start time Last Medication Dose Route Stop Time Status Admin Acetaminophen 650 MG Q6P PRN 05/01 2230 AC 05/03 PO 1202 Acetaminophen 1,000 MG Q6P PRN 05/01 2230 AC IV Atorvastatin Calcium 10 MG 1700 05/02 1700 AC 05/03 PO 1546 Clopidogrel Bisulfate 75 MG DAILY 05/04 1227 AC 05/04 PO 1321 Pantoprazole Sodium 40 MG BID 05/02 0900 AC 05/04 IV 0826 Sotalol HCl 40 MG BID 05/02 0900 AC 05/04 PO 0826 Last 24 Hrs of Lab/Thai Results Last 24 Hrs of Labs/Mics: Laboratory Tests 05/04/18 0620: Anion Gap 7, Estimated GFR 47 L, BUN/Creatinine Ratio 19.1, CBC w Diff NO MAN DIFF REQ, RBC 3.13 L, MCV 90.3, MCH 30.3, MCHC 33.6, RDW 17.5 H, MPV 8.3, Gran % 77.4 H, Lymphocytes % 10.1 L, Monocytes % 10.7 H, Eosinophils % 1.8, Basophils % 0, Absolute Granulocytes 9.7 H, Absolute Lymphocytes 1.3, Absolute Monocytes 1.3 H, Absolute Eosinophils 0.2, Absolute Basophils 0 05/03/181844: CBC w Diff NO MAN DIFF REQ, RBC 3.40 L, MCV 90.6, MCH 30.4, MCHC 33.5, RDW 18.0 H, MPV 8.4, Gran % 73.5, Lymphocytes % 13.3 L, Monocytes % 11.0 H, Eosinophils % 2.2, Basophils % 0, Absolute Granulocytes 10.5 H, Absolute Lymphocytes 1.9, Absolute Monocytes 1.6 H, Absolute Eosinophils 0.3, Absolute Basophils 0 Assessment/Plan Assessment: The patient is a 88-year-old female with past medical history of CAD, S/P NSTEMI S/P JOSE RAFAEL, HFpEF (last echo 10/[address] Calvert), HLD, PAF. She presented to [place] ED with the complaint of black stools starting last Tuesday along with nonbloody vomit. She presented with hemoglobin of 5.5 and was transferred to [facility] she was transferred to telemetry floor for further evaluation Of note patient has history of CAD with drug-eluting stent and is on currently aspirin and Plavix. She also has history of atrial fibrillation for which she is on Eliquis. All 3 of her medication were held setting of upper GI bleed and acute blood loss anemia. she was underwent endoscopy and was found to have Milena-Marinelli tear which was cauterized. She has received a total of 3 units of packed RBCs. Her H&H has subsequently improved and she has been stable for past 2 days. There has been no melena episodes since admission. Her diet has been advanced to regular which she has tolerated well. Currently on IV Protonix which I believe can be shifted to oral. She should be discharged on oral Protonix for about 6-8 weeks. Will continue to monitor her H&H. Today we are restarting patient's Plavix. Aspirin and Eliquis remain on hold. We will see how the patient does on telemetry monitoring and will discuss with cardiology for further need to be on Eliquis. Patient is full code she is not on DVT prophylaxis in setting of GI bleed. Plavix has been started today. Problem List: 1. GI bleed Pain Ratin Pain Location: NA Pain Goal: Pain 4 or less Pain Plan: PRN Tomorrow's Labs & Rationales: CBC BEP Ney Conner MD 05/04/18 1337: Attending MD Review Statement Attending Statement Attending MD Statement: examined this patient, discuss w/resident/PA/HYDRATOR OPERATOR, agreed w/resident/PA/HYDRATOR OPERATOR, reviewed EMR data (avail) Attending Assessment/Plan: 88F PMH CAD, S/P NSTEMI S/P JOSE RAFAEL, HFpEF (last echo 10/[address] Calvert), HLD, PAF admitted with melena, underwent endoscopy on 05/02 with Milena-Marinelli tears now s/p cautery, hemodynamically stable with stable CBC. Had cath with JOSE RAFAEL placed 6 months ago. Doing well today, no complaints. 1. Upper GI bleed secondary to Milena-Marinelli tears 2. Acute blood loss anemia 3. History of CAD with NSTEMI Plan - Continue on telemetry - Restarting Plavix today per GI - Monitor for atrial fibrillation - Transfuse to Hgb > 8.0 - PPI BID - Follow GI and cardiology recommendations - Continue home medications - DVT PPx
--- NOTE | 2018-05-04 12:30 | ECHOCARDIOGRAM REPORT ---
SALONI ARDON Age: 88 : 1930 Gender: F Exam Date: 05/03/2018 11:29 Exam Location: [facility] Ht (in): 66 Wt (lb): 160 BSA: 1.85 BP: 120 / 60 Ordering Physician: Gary Johansen MD Referring Physician: Gary Johansen MD Technologist: Arden Castro [facility] Room Number: Indications: AFIB/FLUTTER Rhythm: Sinus Technical Quality: Fair FINDINGS Left Ventricle Normal size left ventricle. Normal left ventricular wall thickness. No obvious regional wall motion abnormalities. Normal left ventricular ejection fraction visually estimated at >60%. "pseudonormal" filling pattern of the left ventricle for age (stage 2 diastolic dysfunction). Right Ventricle Normal right ventricular size and function. Right Atrium Normal right atrial size. Left Atrium Mild left atrial dilatation. Mitral Valve Moderate mitral annular calcification. Mitral valve moderately thickened. Mild mitral stenosis. Mild mitral regurgitation. Aortic Valve Trileaflet aortic valve. Focal thickening of the aortic valve cusps. No aortic valve stenosis or regurgitation. Tricuspid Valve Structurally normal tricuspid valve. Mild to moderate tricuspid regurgitation. Moderate pulmonary hypertension. Right ventricular systolic pressure estimated to be elevated at 50 mmHg. Pulmonic Valve Pulmonic valve not well visualized, grossly normal. Trace pulmonic regurgitation. Pericardium No pericardial effusion. Great Vessels Normal size aortic root. Mildly dilated inferior vena cava. CONCLUSIONS Normal size left ventricle. Normal left ventricular wall thickness. No obvious regional wall motion abnormalities. Normal left ventricular ejection fraction visually estimated at > 60%. "pseudonormal" filling pattern of the left ventricle for age (stage 2 diastolic dysfunction). Normal right ventricular size and function. Normal right atrial size. Mild left atrial dilatation. Mild mitral stenosis. Mild mitral regurgitation. Mild to moderate tricuspid regurgitation. Moderate pulmonary hypertension. Trace pulmonic regurgitation. Mildly dilated inferior vena cava. Lemuel Calvert M.D. (Electronically Signed) Final Date: 04 May 2018 12:30 MEASUREMENTS (Male / Female) Normal Values 2D ECHO LV Diastolic Diameter PLAX 4.2 cm 4.2 - 5.9 / 3.9 - 5.3 cm LV Systolic Diameter PLAX 2.1 cm 2.1 - 4.0 cm LV Fractional Shortening PLAX 50.0 % 25 - 46 % LV Ejection Fraction 2D Teich 81.7 % IVS Diastolic Thickness 1.0 cm LVPW Diastolic Thickness 1.0 cm LV Relative Wall Thickness 0.5 RV Internal Dim ED PLAX 2.8 cm 1.9 - 3.8 cm LVOT Diameter 1.8 cm Aortic Root Diameter 2.6 cm LA Systolic Diameter LX 4.1 cm 3.0 - 4.0 / 2.7 - 3.8 cm LA Volume 56.0 cm 18 - 58 / 22 - 52 cm Ascending Aorta Diameter 2.7 cm DOPPLER AV Peak Velocity 140.0 cm/s AV Peak Gradient 7.8 mmHg AV Mean Velocity 86.7 cm/s AV Mean Gradient 4.0 mmHg AV Velocity Time Integral 29.3 cm LVOT Peak Velocity 99.2 cm/s LVOT Peak Gradient 3.9 mmHg LVOT Mean Velocity 49.9 cm/s LVOT Mean Gradient 1.0 mmHg LVOT Velocity Time Integral 20.3 cm LVOT Stroke Volume 51.7 cm AV Area Cont Eq vti 1.8 cm AV Area Cont Eq pk 1.8 cm MV Peak Velocity 192.0 cm/s MV Peak Gradient 14.7 mmHg MV Mean Velocity 89.3 cm/s MV Mean Gradient 4.0 mmHg Mitral E Point Velocity 147.0 cm/s Mitral A Point Velocity 115.0 cm/s Mitral E to A Ratio 1.3 MV PHT Velocity 181.0 cm/s MV Deceleration [place] 668.0 cm/s MV Pressure Half Time 81.3 ms MV Area PHT 2.7 cm MV Deceleration Time 194.0 ms MR Peak Velocity 496.0 cm/s MR Peak Gradient 98.4 mmHg TR Peak Velocity 335.0 cm/s TR Peak Gradient 44.9 mmHg Right Atrial Pressure 5.0 mmHg Pulmonary Artery Systolic Pressu 49.9 mmHg Right Ventricular Systolic Press 49.9 mmHg PV Peak Velocity 80.0 cm/s PV Peak Gradient 2.6 mmHg PV Mean Velocity 51.7 cm/s PV Mean Gradient 1.0 mmHg PV Velocity Time Integral 18.5 cm LV E' Lateral Velocity 5.9 cm/s Mitral E to LV E' Lateral Ratio 25.1 LV E' Septal Velocity 6.0 cm/s Mitral E to LV E' Septal Ratio 24.3
[2018-05-04 14:30] VITALS: BP 110/60
[2018-05-04] MEDS ORDERED: PLAVIX75 M1 PO ×2 (15:32)
--- NOTE | 2018-05-04 15:34 | Patient Discharge Instructions ---
Discharge Instructions General Discharge Information You were seen/treated for: Acute blood loss anemia due to upper GI bleed You had these procedures: Endoscopy Watch for these problems: Fever, chills, blood in stool, blood in vomit, chest pain palpitations Special Instructions: -Please follow-up with Dr. Jacobsen within 1 week of discharge -Please follow-up with your foreign exchange clerk within 1 week of discharge -We are holding 2 of your medication aspirin and Eliquis because of recent GI bleed -Please follow-up with your primary care doctor within 1 week of discharge Diet Recommended Diet: Regular Activity Activity Self Limited: Yes Acute Coronary Syndrome Inclusion Criteria At DC or during hospital stay patient has or had the following: ACS DIAGNOSIS No Discharge Core Measures Meds if any: Prescribed or Continued at Discharge Meds if any: NOT Prescribed or Continued at Discharge Congestive Heart Failure Inclusion Criteria At DC or during hospital stay patient has or had the following: CHF DIAGNOSIS No Discharge Core Measures Meds if any: Prescribed or Continued at Discharge Meds if any: NOT Prescribed or Continued at Discharge Cerebrovascular accident Inclusion Criteria At DC or during hospital stay patient has or had the following: CVA/TIA Diagnosis No Discharge Core Measures Meds if any: Prescribed or Continued at Discharge Meds if any: NOT Prescribed or Continued at Discharge Venous thromboembolism Inclusion Criteria VTE Diagnosis No VTE Type NONE VTE Confirmed by (Test) NONE Discharge Core Measures - Per Current guidelines, there needs to be overlap - treatment for the first 5 days of Warfarin therapy. - If discharged on Warfarin prior to 5 days of - overlap therapy, the patient will need to be - assessed for post discharge needs including - *Post discharge parental anticoagulation - *Warfarin and/or parental anticoagulation education - *Follow up date to check INR post discharge At least 5 days overlap therapy as Inpatient No Meds if any: Prescribed or Continued at Discharge Note: Overlap Therapy is Warfarin and Anticoagulant Meds if any: NOT Prescribed or Continued at Discharge
--- NOTE | 2018-05-04 18:56 | PN- Cardiology ---
Subjective Subjective: No complaints. Maintaining sinus rhythm. 4 and 6 beat runs of VT noted overnight. Objective Vital Signs and I&Os Vital Signs Date Time Temp Pulse Resp B/P B/P Pulse O2 O2 Flow FiO2 Mean Ox Delivery Rate 05/04 1600 97 Room Air 05/04 1430 98.4 61 18 110/60 97 Room Air 05/04 0800 97 Room Air 05/04 0610 97.6 73 18 114/56 97 Room Air 05/04 0059 98.1 66 22 160/72 98 Room Air 05/03 2221 97.7 81 18 102/58 98 Room Air Intake & Output 05/04 1600 05/04 0800 05/04 0000 05/03 1600 05/03 0800 05/03 0000 Intake Total 500 100 120 300 60 Output Total 350 300 200 350 300 Balance 150 -200 -80 300 -350 -240 Intake, Oral 500 100 120 300 60 Number 1 Bowel Movements Output, Urine 350 300 200 350 300 Patient 159 lb 160 lb Weight Weight Bed scale Measurement Method Physical Exam: Well-developed, well-nourished elderly female in no acute distress with nasal oxygen in place. Vital signs: See above. HEENT: Normocephalic, atraumatic, EOMI, slightly dry mucous membranes. Neck: No JVD, no bruits. Lungs: Clear to auscultation. Heart: S1, S2 with a grade 2/6 systolic murmur. PMI fifth ICS MCL. No gallop or rub. Abdomen: Soft, nontender, positive bowel sounds. Extremities: No edema. Assessment/Plan Assessment/Plan 88-yo-H-f w/ hx of dementia, hypothyroidism, pul nodules, pul HTN, HTN, HLD, AF on NOAC (apixaban), CAD s/p ACS w/ PCI/JOSE RAFAEL LCx (11/02/2017) on antiplatelet Rx ( asa, clopidogrel), LVH w/ DD, & HFpEF who presented w/ a GI bleed 2/2 an actively bleeding M-W tear successfully managed (epi injections; BiCAP cautery) who we are asked to evaluate & help manage in regard to her AC & antiplatelet Rx. She has a [id number] Score of 6 (HF=1, HTN=1, 88 years=2, MT=1, F=1) w/ an unadjusted stroke rate of 9.7%/yr &, as such, would typically recommend anticoagulation. Her head CT also suggested the possibility of an old stroke which would add an additional 2 points to her score and stroke risk. However, prior to her NSTEMI, she had no history of AF and has been in NSR during this hospitalization. One might consider placing a [employer] LINQ recording system to see if PAF is occurring. If it is, would naturally, restart the NOAC. If there is no PAF, would discontinue AC. Fortunately, her GI bleed has stopped and while it would be ideal to maintain her on dual antiplatelet therapy, she is 6 months out from her ACS w/PCI/JOSE RAFAEL and the risk of maintaining her on this appears prohibitive, especially with her potential requirement for AC ("triple therapy"). Recommendations: * Continue on telemetry to assess for PAF. * Continue to f/u H/H closely and maintain hgb at or above 8.0 g/dl. * Continue to hold AC. * As per GI clopidogrel restarted. * Would not restart NOAC, unless there is evidence of AF. Continue telemetry? Yes
[2018-05-04 22:25] VITALS: BP 118/78
[2018-05-04 22:30] VITALS: BP 118/78
[2018-05-05 07:03] VITALS: BP 114/64
--- NOTE | 2018-05-05 07:21 | PN- Housestaff ---
Aurelio CERNA,[facility] 05/05/18 0720: Subjective Follow-up For: Acute blood loss anemia Upper GI bleed Tele-Events Since Last Visit: Sinus rhythm overnight however in the evening patient had a 4 beat And a separate 6 beat run of V. tach Subjective: Patient has been seen and examined. She was sitting comfortably putting her dentures on to eat her breakfast. Had an uneventful night. Wants to be discharged home today. Does not report any fever chills denies any vomiting no blood noticed in stool Review of Systems Constitutional: Reports: see HPI. Objective Last 24 Hrs of Vital Signs/I&O Vital Signs Date Time Temp Pulse Resp B/P B/P Pulse O2 O2 Flow FiO2 Mean Ox Delivery Rate 05/05 0703 97.7 63 18 114/64 98 Room Air 05/04 2230 98.3 69 19 118/78 97 05/04 2225 98.3 69 19 118/78 97 05/04 1600 97 Room Air 05/04 1430 98.4 61 18 110/60 97 Room Air Intake & Output 05/05 1600 05/05 0800 05/05 0000 Intake Total 200 380 Output Total 450 Balance 200 -70 Intake, Oral 200 380 Output, Urine 450 Patient 158 lb Weight Physical Exam General Appearance: Alert, Oriented X3 HEENT: Atraumatic Cardiovascular: Normal S1, Normal S2 Lungs: Clear to Auscultation, Normal Air Movement Abdomen: Normal Bowel Sounds, Soft, No Tenderness Neurological: Normal Speech Current Medications: Current Medications Sig/Alfredo Start time Last Medication Dose Route Stop Time Status Admin Acetaminophen 650 MG Q6P PRN 05/01 2230 AC 05/03 PO 1202 Acetaminophen 1,000 MG Q6P PRN 05/01 2230 AC IV Atorvastatin Calcium 10 MG 1700 05/02 1700 AC 05/04 PO 1659 Clopidogrel Bisulfate 75 MG DAILY 05/04 1227 AC 05/04 PO 1321 Pantoprazole Sodium 40 MG BID 05/02 0900 AC 05/04 IV 2046 Patient Medication 1 ED ONE ONE 05/04 1700 DC 05/04 Teaching ED 05/04 1701 1701 Sotalol HCl 40 MG BID 05/02 0900 AC 05/04 PO 2046 Last 24 Hrs of Lab/Thai Results Last 24 Hrs of Labs/Mics: Laboratory Tests 05/05/18 0635: Anion Gap 7, Estimated GFR 52 L, BUN/Creatinine Ratio 20.0, CBC w Diff Pending, WBC Pending, RBC Pending, Hgb Pending, Hct Pending, MCV Pending, MCH Pending, MCHC Pending, RDW Pending, Plt Count Pending, MPV Pending Assessment/Plan Assessment: The patient is a 88-year-old female with past medical history of CAD, S/P NSTEMI S/P JOSE RAFAEL, HFpEF (last echo 10/[address] Calvert), HLD, PAF. She presented to [place] ED with the complaint of black stools starting last Tuesday along with nonbloody vomit. She presented with hemoglobin of 5.5 and was transferred to ICU Later she was transferred to telemetry floor for further evaluation Of note patient has history of CAD with drug-eluting stent and is on currently aspirin and Plavix. She also has history of atrial fibrillation for which she is on Eliquis. All 3 of her medication were held setting of upper GI bleed and acute blood loss anemia. she was underwent endoscopy and was found to have Milena-Marinelli tear which was cauterized. She has received a total of 3 units of packed RBCs. Her H&H has subsequently improved and she has been stable for past 2 days. There has been no melena episodes since admission. Her diet has been advanced to regular which she has tolerated well. Currently on IV Protonix which I believe can be shifted to oral on discharge. She should be discharged on oral Protonix for about 6-8 weeks. Will continue to monitor her H&H. We restarted patient's Plavix yesterday and her H/H remained stable. Have discussed with cardiology, will discontinue aspirin and Eliquis on discharge. She is a candidate of [employer] recording system to see if PAF is occurring as an outpatient. If it is patient be restarted on Eliquis if not should remain off Patient is full code she is not on DVT prophylaxis in setting of GI bleed. Problem List: 1. GI bleed Pain Ratin Pain Location: na Pain Goal: Pain 4 or less Pain Plan: prn Tomorrow's Labs & Rationales: none Ney Maza MD 05/05/18 1022: Attending Review Statement Attending Statement Attending MD Statement: examined this patient, discuss w/resident/PA/RN TRAUMA, agreed w/resident/PA/RN TRAUMA, reviewed EMR data (avail) Attending Assessment/Plan: 88F PMH CAD, S/P NSTEMI S/P JOSE RAFAEL, HFpEF (last echo 10/[address] Calvert), HLD, PAF admitted with melena, underwent endoscopy on 05/02 with Milena-Marinelli tears now s/p cautery, hemodynamically stable with stable CBC. Had cath with JOSE RAFAEL placed 6 months ago. Doing well today, no complaints. CBC stable. 1. Upper GI bleed secondary to Milena-Marinelli tears 2. Acute blood loss anemia 3. History of CAD with NSTEMI Plan - Stable for discharge home - Continue Plavix on discharge, hold Eliquis and ASA - PPI BID - Outpatient cardiology and GI follow up - Continue home medications
[2018-05-05 08:16] LABS: ABSOLUTE BASOPHIL COUNT 0 /CUMM (0.0-0.2); ABSOLUTE EOSINOPHIL COUNT 0.2 /CUMM (0.0-0.7); ABSOLUTE GRANULOCYTE CT 7.6 /CUMM (1.4-6.5); ABSOLUTE LYMPH COUNT 1.5 /CUMM (1.2-3.4); ABSOLUTE MONOCYTE COUNT 1.1 /CUMM (0.10-0.60); BASOPHIL % 0.2 % (0.0-2.0); EOSINOPHIL % 2.2 % (0-5); GRANULOCYTE % 72.7 % (42.2-75.2); HEMATOCRIT 29.8 % (37-47); MEAN CORPUSCULAR HGB CONC 32.8 G/DL (33.0-37.0); MEAN CORPUSCULAR VOLUME 91.5 FL (81.0-99.0); MEAN PLATELET VOLUME 8.4 FL (7.4-10.4); PLATELET COUNT 288 /CUMM (130-400); RBC DISTRIBUTION WIDTH 17.9 % (11.5-14.5); RED BLOOD CELL CT 3.26 /CUMM (4.20-5.40); WHITE BLOOD CELL COUNT 10.5 /CUMM (4.8-10.8)
[2018-05-05] MEDS ORDERED: OMEPRAZOLE40 M1 PO ×2 (10:04)
--- NOTE | 2018-05-05 15:01 | Discharge Summary ---
Visit Information Visit Dates Admission Date: 05/01/18 Discharge Date: 05/05/18 Hospital Course Course Attending Physician: Ney Conner MD Primary Care Physician: Harsh Branch MD Hospital Course: The patient is a 88-year-old female with past medical history of CAD, S/P NSTEMI S/P drug-eluting stent, HFpEF (last echo 10/[address] Calvert), HLD, PAF. She presented to [facility] ED with the complaint of black stools along with nonbloody vomit after consuming canned soup. Vitals on presentation tachycardic up to 115, blood pressure 162/63, subsequent reading ranging 110-120/50-60s Admission labs were significant for hemoglobin of 5.5 and hematocrit of 16.1 with her baseline H/H being 13/40 BUN 42, creatinine 1.[address] scan with IV contrast was done which was not significant for any acute intra-abdominal or intrapelvic pathology there was mild to moderate diverticulosis without evidence of diverticulitis. The patient was admitted to ICU for close monitoring and GI service services were contacted. Patient is on triple therapy aspirin Plavix and Eliquis with a history of atrial fibrillation and drug-eluting stent. All these 3 medications were put on hold and she was started on IV Protonix 40 twice daily. She received 3 units of packed RBC during her stay. Patient underwent endoscopy on 05/02. The endoscopy findings were significant for Milena-Marinelli tear with active bleeding , she underwent epinephrine injection and electrocautery with cessation of bleeding. She was kept n.p.o. overnight after endoscopy and later her diet was advanced to clear to full liquids and later tolerated regular diet without any complaints. Later she was transferred to telemetry floor. H/H subsequently improved and remained stable. There were no episodes of melena or hematemesis. Dr. Calvert from cardiology was also consulted. In view of drug-eluting stent patient has been started on Plavix, her H/H remained stable after resumption of Plavix the next day. After discussion with cardiology we are going to discontinue aspirin and Eliquis on discharge. Patient has history of paroxysmal atrial fibrillation she is a candidate for [employer] recording system to see if she experiences paroxysmal atrial fibrillation again. She will require cardiology follow-up for that. We need to be proactive regarding that because patient has [id number] Score 9 (with her CT scan suggestive of old stroke). Echocardigram was suggestive of stage 2 diastolic heart failure see Echo report for more deail. Rest of her home medications were continued except aspirin and Eliquis. She is being discharged on omeprazole 40 mg daily for 4-6 weeks, With instructions of GI follow-up for acute blood loss anemia in setting of upper GI bleed. She presented with ZAIDA Cr 1.2 Prerenal most likley secondary to dehyradtion which returned to 1.0 around baseline on day of discharge She was full code during her stay. Allergies: Coded Allergies: No Known Allergies (10/30/17) Pertinent Lab Results: CT ABDOMEN AND PELVIS WITHOUT CONTRAST TECHNIQUE: Multidetector volumetric imaging was performed from the superior aspect of the liver through the pubic symphysis. Sagittal and coronal reformatted images were obtained on the technologist's workstation. DLP: 271 mGy-cm FINDINGS: LUNG BASES: The visualized lung bases are unremarkable. There is a peripherally calcified structure at the posterior inferior margin of the left ventricle and inferolateral margin of the left atrium measuring 4.9 x 3.7 x 4.4 cm, partially imaged on this study. This is of uncertain etiology, potentially a chronic partially calcified hematoma, a partially calcified aneurysm, or sequela of prior infection. LIVER, GALLBLADDER, AND BILIARY TREE: The liver is normal in size, shape, and attenuation. No focal hepatic lesion or biliary ductal dilatation is present. The gallbladder is filled with peripherally calcified gallstones which measure up to 2.4 cm in diameter. No gallbladder wall thickening or surrounding inflammatory changes are identified to indicate cholecystitis. PANCREAS: Unremarkable. SPLEEN: Unremarkable. ADRENAL GLANDS: Unremarkable. KIDNEYS AND URETERS: The kidneys are normal in size, shape, and attenuation. No hydronephrosis, hydroureter, or calculi seen. No perinephric stranding. BLADDER: Unremarkable. GASTROINTESTINAL TRACT: Stomach, small bowel, and colon are normal in caliber. No bowel wall thickening or surrounding inflammatory changes. Appendix is normal. There is mild to moderate colonic diverticulosis, most notably in the sigmoid and descending colon. A few diverticula are present in the ascending colon. No intraperitoneal free air or free fluid. ABDOMINAL WALL: No significant hernia is uterus and ovaries are unremarkable. Appreciated. LYMPH NODES: Normal. VASCULAR: Calcific atherosclerosis is present in the abdominal aorta and iliac arteries. No aneurysmal dilatation. 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 There is marked facet arthropathy. There is ankylosis of the SI joints. 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 IMPRESSION: 1. No acute intra-abdominal or intrapelvic abnormalities. There is mild to moderate colonic diverticulosis without evidence of acute diverticulitis. 2. Marked cholelithiasis without findings of acute cholecystitis. 3. A peripherally calcified 4.9 cm cardiac structure at the posterior/inferior margin of the left atrioventricular groove, possibly a chronic peripherally calcified collection/hematoma, a partially calcified aneurysm, or sequela of prior infection. Recommend correlation with the results of a prior echocardiogram from 10/31/2017. 4. 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 Diffuse ankylosis of the thoracal lumbar spine is either due to ankylosing spondylitis or diffuse idiopathic skeletal hyperostosis. Echocardiogram FINDINGS Left Ventricle Normal size left ventricle. Normal left ventricular wall thickness. No obvious regional wall motion abnormalities. Normal left ventricular ejection fraction visually estimated at >60%. "pseudonormal" filling pattern of the left ventricle for age (stage 2 diastolic dysfunction). Right Ventricle Normal right ventricular size and function. Right Atrium Normal right atrial size. Left Atrium Mild left atrial dilatation. Mitral Valve Moderate mitral annular calcification. Mitral valve moderately thickened. Mild mitral stenosis. Mild mitral regurgitation. Aortic Valve Trileaflet aortic valve. Focal thickening of the aortic valve cusps. No aortic valve stenosis or regurgitation. Tricuspid Valve Structurally normal tricuspid valve. Mild to moderate tricuspid regurgitation. Moderate pulmonary hypertension. Right ventricular systolic pressure estimated to be elevated at 50 mmHg. Pulmonic Valve Pulmonic valve not well visualized, grossly normal. Trace pulmonic regurgitation. Pericardium No pericardial effusion. Great Vessels Normal size aortic root. Mildly dilated inferior vena cava. CONCLUSIONS Normal size left ventricle. Normal left ventricular wall thickness. No obvious regional wall motion abnormalities. Normal left ventricular ejection fraction visually estimated at > 60%. "pseudonormal" filling pattern of the left ventricle for age (stage 2 diastolic dysfunction). Normal right ventricular size and function. Normal right atrial size. Mild left atrial dilatation. Mild mitral stenosis. Mild mitral regurgitation. Mild to moderate tricuspid regurgitation. Moderate pulmonary hypertension. Trace pulmonic regurgitation. Mildly dilated inferior vena cava. Disposition Summary Disposition Principal Diagnosis: Acute blood loss anemia secondary to upper GI bleed in setting of Milena-Marinelli tear Additional Diagnosis: History of drug-eluting stent on triple therapy aspirin Plavix and Eliquis Discharge Disposition: home or self care Discharge Instructions General Discharge Information Code Status: Full Code Patient's Diet: Initially n.p.o. later advanced to clears to full liquids and then tolerated regular diet Patient's Activity: Self-limited as tolerated Follow-Up Instructions/Appts: Follow-up with your primary care doctor within 1 week of discharge Follow-up with GI Dr. 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 Medications at Discharge Discharge Medications: Stop taking the following medications: Aspirin (Aspirin*) 81 MG TAB.CHEW ORAL DAILY Apixaban (Eliquis) 2.5 MG TABLET ORAL TWICE DAILY Continue taking these medications: Atorvastatin Calcium (Atorvastatin Calcium) 10 MG TABLET 1 Tablet ORAL DAILY Days = 30 Comments: Last Taken: 05/04/18 Time: 1700 Furosemide (Lasix) 20 MG TABLET 1 Tablet ORAL TWICE DAILY Comments: did not receive in hospital Sotalol (Betapace) 80 MG TABLET 1 Tablet ORAL DAILY Comments: Last Taken:05/05/18 Time:0900 40MG TWICE PER DAY GIVEN IN HOSPITAL Clopidogrel Bisulfate (Plavix) 75 MG TABLET 1 Tablet ORAL DAILY Comments: Last Taken:05/05/18 Time:0900 Start taking the following new medications: Omeprazole (Omeprazole) 40 MG CAPSULE. 1 Capsule ORAL DAILY BEFORE BREAKFAST Qty = 30 No Refills Instructions: . Comments: take for 8 weeks till 07/08- start taking tomorrow 05/06/18 Copies To: Enrike [facility],Lemuel Olmedo; Na [facility],Amberly; Jose Carlos [facility],Harsh Olmedo Attending MD Review Statement Documenting Attending: Ney Conner MD
== END 2018-05-05 13:33 | DRG 368 ==
LOC: ERH 17:36 → CRI 21:05 → ERHI 21:05 → EDBEDREQ 22:41 → ENRESERV 05-02 01:21 → CRI 05-02 02:42 → ENTRNSPT 05-03 11:54 → EDTRNSPT 05-03 11:58 → EDTRNSPTSTS 05-03 11:58 → 1NO 05-03 12:17 → CMPTRNSPT 05-03 12:22 → 1NO 05-04 07:47 → ENPENDDIS 05-05 11:04 → ENTRNSPT 05-05 13:23 → EDTRNSPTSTS 05-05 13:30 → 1NO 05-05 13:33 → CMPTRNSPT 05-05 13:44
PROVIDERS: Internal Medicine; Internal Medicine Adolescent Medicine; Internal Medicine Interventional Cardiology; Physician Assistant; Preventive Medicine Public Health & General Preventive Medicine
PROC: 30233N1 Transfusion of Nonautologous Red Blood Cells into Peripheral Vein, Percutaneous Approach (ICD-10-PCS; 2018-05-01)
PROC: 0W3P8ZZ Control Bleeding in Gastrointestinal Tract, Via Natural or Artificial Opening Endoscopic (ICD-10-PCS; principal; 2018-05-02)
DX: K22.6 Gastro-esophageal laceration-hemorrhage syndrome (principal); G93.41 Metabolic encephalopathy; I50.32 Chronic diastolic (congestive) heart failure; D62 Acute posthemorrhagic anemia; N17.9 Acute kidney failure, unspecified; I11.0 Hypertensive heart disease with heart failure; I48.2 Chronic atrial fibrillation; Z79.01 Long term (current) use of anticoagulants; T45.525A Adverse effect of antithrombotic drugs, initial encounter; I95.1 Orthostatic hypotension; E86.0 Dehydration; I25.10 Atherosclerotic heart disease of native coronary artery without angina pectoris; I25.2 Old myocardial infarction; D72.829 Elevated white blood cell count, unspecified; Z98.61 Coronary angioplasty status
CPT/HCPCS: 1NSP; CCU; ERO; 36415; 36592; 71045; 74176; 81003; 82436; 86920; 93005; 93010; 93306; 97110-GO; 97116-GO; 97161-GP; 97530-GO; J0131; J0171; P9016